=== PATIENT | male | born 1945 | race Caucasian/White ===

== ENCOUNTER 2017-03-07 23:56 | Inpatient (IN) | payer OTHER ==
[~2017-03-07] VITALS: Ht 162.6 cm; Wt 64.4 kg
--- NOTE | 2017-03-08 00:01 | ED SYNCOPE COMPLAINT ---
History of Present Illness General Chief Complaint: Syncope and Near-Syncope Stated Complaint: BIBA, SYNCOPE Source: patient, family Exam Limitations: poor historian Vital Signs & Intake/Output Vital Signs & Intake/Output Vital Signs Date Time Temp Pulse Resp B/P B/P Pulse O2 O2 Flow FiO2 Mean Ox Delivery Rate 03/08 0206 70 20 133/97 95 Room Air 03/08 0010 209/119 03/08 0006 200/90 03/08 0000 94 Room Air Room Air 03/08 0000 97.4 86 16 204/111 99 Room Air Allergies Coded Allergies: No Known Allergies (03/08/17) HPI: 72 year old male presents via EMS from home for chief complaint of right sided abdominal pain, nausea and spitting up. Per the daughter she was trying to bring him to the hospital and he passed out once while standing for approx 1 minute and then again after lying down in the stretcher. Pain initially went away but then returned again. Past History Travel History Traveled to [place] past 21 day No Medical History Any Pertinent Medical History? see below for history Cardiovascular: hypertension Cancer(s): prostate cancer (METS TO BONE) Physical Exam Physical Exam General Appearance: alert, awake, anxious, cachetic, mild distress, moderate distress, thin Head: atraumatic, normal appearance Eyes: Bilateral: PERRL, EOMI, pale conjunctivae. Ears, Nose, Throat: normal pharynx, normal ENT inspection, hearing grossly normal Neck: normal inspection, supple, full range of motion Respiratory: normal breath sounds, chest non-tender, no respiratory distress Cardiovascular: regular rate/rhythm Gastrointestinal: soft, tenderness (RLQ, RIGHT FLANK) Back: CVA tenderness (R) Extremities: normal inspection, normal capillary refill, normal range of motion, calf tenderness Psychiatric: awake, alert, oriented x 3 Cranial Nerves: normal hearing, normal speech, PERRL Motor/Sensory: no motor/sensory deficits Progress Differential Diagnosis: aortic dissection, pulmonary embolus, UTI, PYELO, NEPHROLITHIASIS, AAA Plan of Care: Orders Procedure Date/time Status Heart Healthy Diet 03/08 B Active Add-on Test (ER Only) 03/08 228 Active ED Holding Orders 03/08 227 Active Admit to inpatient 03/08 227 Active Vital Signs 03/08 227 Active Code Status 03/08 227 Active Telemetry/Proposal Editor 02/01 0009 Active URINALYSIS 03/08 8 Complete TROPONIN LEVEL 03/08 8 Complete COMPREHENSIVE METABOLIC PANEL 03/08 8 Complete CBC WITHOUT DIFFERENTIAL 03/08 8 Complete EKG 03/08 8 Active Current Medications Sig/Fareed Start time Last Medication Dose Stop Time Status Admin Heparin Sodium 5,000 UNIT ONCE ONE 03/08 229 UNVr (Porcine) 03/08 230 (Heparin Bolus) Heparin Sodium 25,000 UNIT Q24H 03/08 229 UNVr (Porcine) (Heparin) Sodium Chloride 500 ML Laboratory Tests 03/08/17 0025: Urine Color YEL, Urine Clarity HAZY H, Urine pH 7.5, Ur Specific [place] 1.020, Urine Protein NEG, Urine Ketones NEG, Urine Nitrite NEG, Urine Bilirubin NEG, Urine Urobilinogen 1.0, Ur Leukocyte Esterase NEG, Ur Microscopic SEDIMENT EXAMINED, Urine RBC 15-25 H, Urine WBC RARE, Ur Epithelial Cells RARE, Urine Mucus RARE, Urine Hemoglobin LARGE H, Urine Glucose NEG 03/08/17 0015: Anion Gap 14, Estimated GFR > 60, BUN/Creatinine Ratio 21.7, Glucose 117 H, Calcium 9.2, Total Bilirubin 0.9, AST 25, ALT 23, Alkaline Phosphatase 78, Troponin I 0.05, Total Protein 7.5, Albumin 4.1, Globulin 3.4, Albumin/Globulin Ratio 1.2, CBC w Diff NO MAN DIFF REQ, RBC 4.69 L, MCV 88.4, MCH 30.0, MCHC 34.0, RDW 14.5, MPV 8.8, Gran % 76.7 H, Lymphocytes % 15.2 L, Monocytes % 7.1, Eosinophils % 0.8, Basophils % 0.2, Absolute Granulocytes 7.0 H, Absolute Lymphocytes 1.4, Absolute Monocytes 0.6, Absolute Eosinophils 0.1, Absolute Basophils 0 Diagnostic Imaging: Viewed by Me: CT Scan. Discussed w/RAD: CT Scan. Radiology Impression: PATIENT: WASHINGTON HOLLOWAY PRESENT AGE: 72 PATIENT ACCOUNT NO: [id number] : 46 LOCATION: [facility] ORDERING PHYSICIAN: Sabrina Miller MD SERVICE DATE: 03/08/17 EXAM TYPE: CAT - CT ABD & PELVIS W IV CONTRAST EXAMINATION: CT ABDOMEN AND PELVIS WITH CONTRAST CLINICAL INFORMATION: Right lower quadrant and right flank pain. Vomiting. History of prostate cancer. COMPARISON: None TECHNIQUE: Multidetector volumetric imaging was performed of the abdomen and pelvis following IV administration of 95 mL of Optiray 320 intravenous contrast. Sagittal and coronal reformatted images were obtained on the technologist's workstation. DLP: 332 mGy-cm FINDINGS: LUNG BASES: The lung bases are clear. The heart is mildly prominent with coronary artery calcifications. LIVER, GALLBLADDER, AND BILIARY TREE: The liver is normal in size, shape, and attenuation. No focal hepatic lesion or biliary ductal dilatation is present. There is heterogeneity of the enhancement of the portal vein. The appearance is somewhat nonspecific, and while this could be secondary to mixing of enhanced and nonenhanced blood products, the appearance raises suspicion for nonocclusive thrombus. The gallbladder is unremarkable with no evidence of radiopaque gallstones, gallbladder wall thickening, or obvious pericholecystic inflammatory changes. PANCREAS: Unremarkable. SPLEEN: Unremarkable. ADRENAL GLANDS: Unremarkable. KIDNEYS AND URETERS: The kidneys are normal in size, shape, and attenuation. There is mild right hydroureteronephrosis. There is a proximal ureteral 0.2 cm calculus. There is a mid ureteral 0.4 cm calculus at the level of L4. The distal ureter is decompressed. There are multiple foci of high attenuation within the left kidney which could be associated with early excretion of contrast versus small calculi. Multiple right renal cysts. Exophytic left lower pole renal cysts. BLADDER: Unremarkable. GASTROINTESTINAL TRACT: The stomach is unremarkable. The small bowel is normal in caliber without obstruction. No colonic wall thickening or inflammatory change. There is fecalization of the distal ileum suggesting slow transit. ABDOMINAL WALL: No significant hernia is appreciated. LYMPH NODES: Normal. VASCULAR: There is an infrarenal abdominal aortic aneurysm which measures 5.1 cm AP. Noncalcified mural thrombus peripherally. Moderate atherosclerotic calcifications. PELVIC VISCERA: The prostate and seminal vesicles are unremarkable. OSSEOUS STRUCTURES: There are multiple sclerotic lesions throughout the osseous structures consistent with metastatic disease. IMPRESSION: 1. Mild right hydroureteronephrosis with a 0.4 cm obstructing calculus at the mid ureter. 2. Abnormal appearance of the main portal vein with mixed internal attenuation. While this could be secondary to mixing of contrast enhanced and nonenhanced blood, this is suspicious for portal venous thrombus. Doppler ultrasound evaluation could be performed to further evaluate. 3. Infrarenal abdominal aortic aneurysm measuring up to 5.1 cm AP. 4. Diffuse sclerotic lesions throughout the osseous structures consistent with metastatic disease. This critical result was discussed with Sabrina Miller MD by telephone at 03/08/2017 2:09 AM and it was ascertained that the content and urgency of the report was understood at the time of direct communication. DICTATED BY: Brooks Goodman MD DATE/TIME DICTATED:03/08/17200 EXERCISE PHYSIOLOGY PROFESSOR:LEONARD DATE/TIME TRANSCRIBED:03/08/17200 CONFIDENTIAL, DO NOT COPY WITHOUT APPROPRIATE AUTHORIZATION. <Electronically signed in Other Vendor System> SIGNED BY: Rex MOFFETT,Brooks 03/08/17215 Initial ED EKG: NSR, LAFB Departure Departure Time of Disposition: 227 Disposition: STILL A PATIENT Condition: Stable Clinical Impression Primary Impression: Renal colic on right side Referrals: Unknown Departure Forms: Customer Survey General Discharge Information Admission Note Spoke With: Maribel Flood MD Documentation of Exam: Documentation of any treatments & extenuating circumstances including Concerns Regarding Discharge (functional status, medication knowledge or non-compliance, living conditions, etc.) that warrant an admission rather than observation: [ TELE MONITOR, SERIAL EKG/TROPONIN, IV HEAPRIN, MONITOR PT, PTT, PULL RECORDS FROM [facility] TO EVALUATE IF IVC CLOT IS NEW/OLD, CONSIDER CT CHEST PE TOMORROW TO EVALUATE FOR PE PATIENT HAD 2 SYNCOPAL EPISODES]
[2017-03-08 00:35] LABS: ABSOLUTE BASOPHIL COUNT 0 /CUMM (0.0-0.2); ABSOLUTE EOSINOPHIL COUNT 0.1 /CUMM (0.0-0.7); ABSOLUTE LYMPH COUNT 1.4 /CUMM (1.2-3.4); ABSOLUTE MONOCYTE COUNT 0.6 /CUMM (0.10-0.60); BASOPHIL % 0.2 % (0.0-2.0); EOSINOPHIL % 0.8 % (0-5); GRANULOCYTE % 76.7 % (42.2-75.2); HEMATOCRIT 41.4 % (42-52); MEAN CORPUSCULAR VOLUME 88.4 FL (80.0-94.0); MEAN PLATELET VOLUME 8.8 FL (7.4-10.4); PLATELET COUNT 91 /CUMM (130-400); RBC DISTRIBUTION WIDTH 14.5 % (11.5-14.5); RED BLOOD CELL CT 4.69 /CUMM (4.70-6.10); WHITE BLOOD CELL COUNT 9.1 /CUMM (4.8-10.8)
--- NOTE | 2017-03-08 02:16 | CT SCAN REPORT ---
EXAMINATION: CT ABDOMEN AND PELVIS WITH CONTRAST CLINICAL INFORMATION: Right lower quadrant and right flank pain. Vomiting. History of prostate cancer. COMPARISON: None TECHNIQUE: Multidetector volumetric imaging was performed of the abdomen and pelvis following IV administration of 95 mL of Optiray 320 intravenous contrast. Sagittal and coronal reformatted images were obtained on the technologist's workstation. DLP: 332 mGy-cm FINDINGS: LUNG BASES: The lung bases are clear. The heart is mildly prominent with coronary artery calcifications. LIVER, GALLBLADDER, AND BILIARY TREE: The liver is normal in size, shape, and attenuation. No focal hepatic lesion or biliary ductal dilatation is present. There is heterogeneity of the enhancement of the portal vein. The appearance is somewhat nonspecific, and while this could be secondary to mixing of enhanced and nonenhanced blood products, the appearance raises suspicion for nonocclusive thrombus. The gallbladder is unremarkable with no evidence of radiopaque gallstones, gallbladder wall thickening, or obvious pericholecystic inflammatory changes. PANCREAS: Unremarkable. SPLEEN: Unremarkable. ADRENAL GLANDS: Unremarkable. KIDNEYS AND URETERS: The kidneys are normal in size, shape, and attenuation. There is mild right hydroureteronephrosis. There is a proximal ureteral 0.2 cm calculus. There is a mid ureteral 0.4 cm calculus at the level of L4. The distal ureter is decompressed. There are multiple foci of high attenuation within the left kidney which could be associated with early excretion of contrast versus small calculi. Multiple right renal cysts. Exophytic left lower pole renal cysts. BLADDER: Unremarkable. GASTROINTESTINAL TRACT: The stomach is unremarkable. The small bowel is normal in caliber without obstruction. No colonic wall thickening or inflammatory change. There is fecalization of the distal ileum suggesting slow transit. ABDOMINAL WALL: No significant hernia is appreciated. LYMPH NODES: Normal. VASCULAR: There is an infrarenal abdominal aortic aneurysm which measures 5.1 cm AP. Noncalcified mural thrombus peripherally. Moderate atherosclerotic calcifications. PELVIC VISCERA: The prostate and seminal vesicles are unremarkable. OSSEOUS STRUCTURES: There are multiple sclerotic lesions throughout the osseous structures consistent with metastatic disease. IMPRESSION: 1. Mild right hydroureteronephrosis with a 0.4 cm obstructing calculus at the mid ureter. 2. Abnormal appearance of the main portal vein with mixed internal attenuation. While this could be secondary to mixing of contrast enhanced and nonenhanced blood, this is suspicious for portal venous thrombus. Doppler ultrasound evaluation could be performed to further evaluate. 3. Infrarenal abdominal aortic aneurysm measuring up to 5.1 cm AP. 4. Diffuse sclerotic lesions throughout the osseous structures consistent with metastatic disease. This critical result was discussed with Sabrina Miller MD by telephone at 03/08/2017 2:09 AM and it was ascertained that the content and urgency of the report was understood at the time of direct communication.
--- NOTE | 2017-03-08 02:50 | History & Physical ---
Jimy Cannon MD 03/08/17 0250: General Information and HPI MD Statement: I have seen and personally examined WASHINGTON HOLLOWAY and documented this H& P. The patient is a 72 year old M who presented with a patient stated chief complaint of [syncope, abdominal pain]. Source of Information: patient, family Exam Limitations: not alert/orientated History of Present Illness: Patient is a 72-year-old male with a PMH significant for HTN, AAA, prostate cancer with metastasis to bone, questionable diagnosis of hepatitis who was brought in by EMS after multiple episodes of syncope and severe right lower quadrant pain. Patient began having pain at approximately 7 PM, had one episode of nonbloody emesis and pain resolves for approximately 1-2 hours. The pain began again, was persistent and severe right lower quadrant pain. On the patient's daughter attempted to help the patient get to the car to take him to the hospital he complained of dizziness, became diaphoretic and lost consciousness for approximately 1 minute. He did not exhibit any jerking motions, did not lose control of bowel or bladder, not bite his tongue. EMS was called and the patient proceeded to have 1-2 more episodes of loss of consciousness even while lying down. Patient endorses urinary frequency. Patient denies any chest pain, diarrhea, dysuria, hematuria. Allergies/Medications Allergies: Coded Allergies: No Known Allergies (03/08/17) Past History Travel History Traveled to [place] past 21 day No Medical History Neurological: NONE EENT: NONE Cardiovascular: aortic aneurysm, hypertension Respiratory: COPD Gastrointestinal: NONE Hepatic: questionable hx of hepatitis Renal: NONE Musculoskeletal: NONE Psychiatric: NONE Endocrine: NONE Blood Disorders: NONE Cancer(s): prostate cancer (METS TO BONE) Surgical History Surgical History: non-contributory Past Family/Social History Family History Relations & Conditions if any Relation not specified for: *No pertinent family history Psychosocial History Where do you live? Home Who Do You Live With? child Primary Language: R[place] Smoking Status: Current Everyday Smoker ETOH Use: denies use Illicit Drug Use: denies illicit drug use Functional Ability Ambulation: cane Review of Systems Review of Systems Constitutional: Denies: chills, fever, malaise. EENTM: Denies: blurred vision, double vision, visual changes. Cardiovascular: Reports: syncope. Denies: chest pain, palpitations. Respiratory: Reports: cough. Denies: short of breath. GI: Reports: abdominal pain, vomiting. Denies: diarrhea. Genitourinary: Reports: frequency. Denies: dysuria, hematuria. Exam & Diagnostic Data Last 24 Hrs of Vital Signs/I&O Vital Signs Date Time Temp Pulse Resp B/P B/P Pulse O2 O2 Flow FiO2 Mean Ox Delivery Rate 03/08 0638 98.4 70 20 176/82 98 Room Air 03/08 0206 70 20 133/97 95 Room Air 03/08 0010 209/119 03/08 0006 200/90 03/08 0000 94 Room Air Room Air 03/08 0000 97.4 86 16 204/111 99 Room Air Intake & Output 03/08 0800 03/08 0000 03/07 1600 Intake Total 123.2 Output Total 1000 Balance -876.8 Intake, IV 123.2 Intake, Oral 0 Output, Urine 1000 Patient 142 lb Weight Physical Exam General Appearance Cooperative, Mild Distress, patient is lethargic, oriented to person and place but not time, cooperative with most of exam but would doze off during interview Skin Temp/Moisture Exam: Warm/Dry HEENT Atraumatic, PERRLA, EOMI, Mucous Membr. moist/pink Neck Supple Cardiovascular Regular Rate, Normal S1, Normal S2 Lungs Clear to Auscultation, Normal Air Movement Abdomen Normal Bowel Sounds, guarding, nonrigid, TTP in RLQ, no CVA tenderness Neurological Normal Speech, Sensation Intact Last 24 Hrs of Labs/Dany: Laboratory Tests 03/08/17 0635: Sodium Pending, Potassium Pending, Chloride Pending, Carbon Dioxide Pending, Anion Gap Pending, BUN Pending, Creatinine Pending, BUN/Creatinine Ratio Pending , Troponin I Pending, CBC w Diff Pending, MCH Pending, MCHC Pending, RDW Pending , Plt Count Pending, MPV Pending 03/08/17 0025: Urine Color YEL, Urine Clarity HAZY H, Urine pH 7.5, Ur Specific Angela 1.020, Urine Protein NEG, Urine Ketones NEG, Urine Nitrite NEG, Urine Bilirubin NEG, Urine Urobilinogen 1.0, Ur Leukocyte Esterase NEG, Ur Microscopic SEDIMENT EXAMINED, Urine RBC 15-25 H, Urine WBC RARE, Ur Epithelial Cells RARE, Urine Mucus RARE, Urine Hemoglobin LARGE H, Urine Glucose NEG 03/08/17 0015: Anion Gap 14, Estimated GFR > 60, BUN/Creatinine Ratio 21.7, Glucose 117 H, Calcium 9.2, Total Bilirubin 0.9, AST 25, ALT 23, Alkaline Phosphatase 78, Troponin I 0.05, Total Protein 7.5, Albumin 4.1, Globulin 3.4, Albumin/Globulin Ratio 1.2, PT 12.4, INR 1.18 H, APTT 31, CBC w Diff NO MAN DIFF REQ, RBC 4.69 L, MCV 88.4, MCH 30.0, MCHC 34.0, RDW 14.5, MPV 8.8, Gran % 76.7 H, Lymphocytes % 15.2 L, Monocytes % 7.1, Eosinophils % 0.8, Basophils % 0.2, Absolute Granulocytes 7.0 H, Absolute Lymphocytes 1.4, Absolute Monocytes 0.6, Absolute Eosinophils 0.1, Absolute Basophils 0 Diagnostic Data Other Results abdominal CT 1. Mild right hydroureteronephrosis with a 0.4 cm obstructing calculus at the mid ureter. 2. Abnormal appearance of the main portal vein with mixed internal attenuation. While this could be secondary to mixing of contrast enhanced and nonenhanced blood, this is suspicious for portal venous thrombus. Doppler ultrasound evaluation could be performed to further evaluate. 3. Infrarenal abdominal aortic aneurysm measuring up to 5.1 cm AP. 4. Diffuse sclerotic lesions throughout the osseous structures consistent with metastatic disease. Assessment/Plan Assessment: Patient is a 72-year-old male with a PMH significant for HTN, AAA, prostate cancer with metastasis to bone, questionable diagnosis of hepatitis who was brought in by EMS after multiple episodes of syncope and severe right lower quadrant pain. CT abdomen and pelvis with contrast showed obstrucing R renal calculus, possible portal thrombus, and AAA (5.1 cm). Per daughter, pt is not a surgical candidate due to advanced cancer. Problem list #syncope #Portal venous thrombus #AAA #obstructing renal calculus #hypertensive urgency, resovled plan -admit to tele -Continue telemetry monitoring -Serial troponins and EKGs -Echocardiogram -Orthostatic pressure - consider CTA chest to r/o PE, not done due to IV contrast received for CT abd/ pelvis -IV heparin for portal venous thrombus -Patient follows at the [facility], obtain records of previous CTs for AAA size and evidence of previous portal venous thrombus, consider GI, vascular surgery consult after Records obtained. -Urology consult placed -Continue with adequate pain management - Follow up lactic acid - will hold antihypertensives for now given rapid drop in BP in the ED -confirm code status with patient when he is more alert, he is full code based on initial interview but per daughter he has been DNR/DNI in the past #DVT prophylaxis with IV heparin #Code Status Full code, please confirm with patient when he is more alert As Ranked By This Provider Problem List: 1. AAA (abdominal aortic aneurysm) 2. Portal vein thrombosis 3. Hydronephrosis with renal and ureteral calculus obstruction 4. Syncope Core Measures/Misc (10/22) Acute Coronary Syndrome ACS Diagnosis: No Congestive Heart Failure Congestive Heart Failure Diagnosis No Cerebrovascular Accident CVA/TIA Diagnosis: No VTE (View Protocol) VTE Risk Factors Cancer/chemo/othr therapy No Mechanical VTE Prophylaxis d/t N/A MechProphylax Ordered No VTE Pharm Prophylaxis d/t NA PharmProphylax ordered Sepsis (View protocol) Sepsis Present: No Radha MOFFETT,Mae 03/08/17 0442: General Information and HPI Allergies/Medications Home Med list Calcium Carbonate (Oysco-500) 500 MG CALCIUM (1,250 MG) TABLET 1 TAB PO DAILY VITAMIN (Reported) Cyanocobalamin (Vitamin B-12) (B-12) 1,000 MCG TABLET 1 TAB PO DAILY VITAMIN (Reported) Enzalutamide (Xtandi) 40 MG CAPSULE 4 TAB PO DAILY PROSTATE CANCER (Reported) Labetalol HCl 200 MG TABLET 1 TAB PO BID HTN (Reported) Morphine Sulfate 30 MG TABLET 1 TAB PO Q4 PAIN (Reported) Simvastatin (Simvastatin*) 80 MG TABLET 1 TAB PO DAILY CHOLESTEROL (Reported) Spironolactone (Aldactone) 25 MG TABLET 1 TAB PO DAILY HTN (Reported) Tamsulosin HCl (Flomax) 0.4 MG CAP.ER.24H 1 CAP PO DAILY PROSTATE (Reported) Resident Review Statement Resident Statement: examined this patient, discussed with product management intern Other Findings: H Mr Holloway is a 72-year-old male with a PMH significant for HTN, AAA, prostate cancer with metastasis to bone, questionable diagnosis of hepatitis was brought into the emergency department complaining of right lower pain, emesis and possible syncope. It must be mentioned that the patient was rather somnolent during the course of our interaction and most of the information below was obtained by the primary team from the patient's daughter. Patient states that he was in his usual state of health until 7 PM on 03/07/2017. He subsequently developed pain in his right lower quadrant and had one episode of nonbloody emesis. He subsequently reported relief after this. Approximately 2 hours after a breif respite it then started again. Patient then requested is daughter to bring him to the emergency department however as he was ambulating towards the vehicle he became dizzy, diaphoretic and lost consciousness for approximately 1 minute. During this episode no jerking movements were noted. The patient does not recall what happened during this episode. EMS had to be called and the patient was subsequently brought to the ED. R: On review of systems the patient denies any chest pain or headaches. Denies any fever, chills, nausea, vomiting. Denies any hematuria, diarrhea. Endorses urinary frequency. E: General Appearance: well developed/nourished, no apparent distress, alert and oriented. Somnolent. Head: atraumatic, normal appearance Eyes: PERRLA Ears, Nose, Throat: hearing grossly normal Neck: supple, full range of motion Respiratory:Chest non-tender, no respiratory distress. Cardiovascular: Regular Rate and rhythm, no murmurs gallops or rubs. Gastrointestinal:Hyperactive bowel sounds, some guarding noted. Cesar -. No CVA tenderness. Back: normal inspection, normal range of motion Extremities: normal inspection, normal range of motion. Neurologic/Psych: no motor/sensory deficits, awake, alert, oriented x 3 Skin: warm/dry L: WBC 9.1. H&H 14.1/41.4. Platelets 91 Sodium 142, potassium 3.8, BUN 13, creatinine 0.6. Chloride: 104. Hco3: 25. I: EXAM TYPE: CAT - CT ABD & PELVIS W IV CONTRAST IMPRESSION: 1. Mild right hydroureteronephrosis with a 0.4 cm obstructing calculus at the mid ureter. 2. Abnormal appearance of the main portal vein with mixed internal attenuation. While this could be secondary to mixing of contrast enhanced and nonenhanced blood, this is suspicious for portal venous thrombus. Doppler ultrasound evaluation could be performed to further evaluate. 3. Infrarenal abdominal aortic aneurysm measuring up to 5.1 cm AP. 4. Diffuse sclerotic lesions throughout the osseous structures consistent with metastatic disease. A/P Mr Holloway is a 72-year-old male with a PMH significant for HTN, AAA, prostate cancer with metastasis to bone, questionable diagnosis of hepatitis was brought into the emergency department complaining of right lower pain, emesis and possible syncope. The source of his pain is likley caused by: an obstructing calculus at the mid ureter. His episode of syncope and transient elevated pressure may have been due to the pain, it would be prudent to monitor him closely on the NCT service for the next 24 - 48 hours. Problem List: # Possible Portal venous thrombus # Syncope # AAA # Mild right hydroureteronephrosis # Metastatic disease associated with primary prostate CA. # Hypertensive Urgency on admission Telemetry monitoring. Neurochecks. Patient was started on IV Heparin in the ED. We will continue the patient on IV Heparin. Hold Antihypertensives Echocardiogram to assess right heart strain. ECG and troponins at 6.00 and 12.00 Urology consultation for mild right hydroureteronephrosis, may require cystoscopy with possible stent placement. May assess need for CTA to rule out a PE, this was not ordered as the patient had already received a substantial amount of contrast. Deep ultrasound with Doppler for abdomen. Obtain previous records from [facility]. Once records obtained May consider additional consultations. It appears the patient was aware that he had an aneurysm. Will compare imaging studies from previous hospitalizations. Head CT if mentation changes are noted. Monitor Vitals closely, may resume anti hypertensives if pressure >140/80. CBC and BEP in AM Diet nothing by mouth for now. DVT PPX: Heparin Sub Q Code: FC for now to be confirmed when patient is more alert and oriented. Maribel Flood 03/08/17 0714: Attending MD Review Statement Attending Statement Attending MD Statement: examined this patient, discuss w/resident/PA/CRITICAL CARE TECHNICIAN, agreed w/resident/PA/CRITICAL CARE TECHNICIAN, reviewed EMR data (avail), reviewed images, amended to note Attending Assessment/Plan: CC: Syncope PMH: HTN, metastatic prostate cancer with bone metastases, unclear history of hepatitis currently under treatment, history of CVA, history of AAA History is obtain from patient's daughter. Patient was complaining of abdominal pain and had retching in ER, was given Phenergan and patient was still being very deep thereafter and was not providing any details. According to patient's daughter this evening patient complained of severe right lower quadrant abdominal pain, followed by 8 patient had one episode of vomiting and then he was better for an hour or so, he again noticed to have a severe left lower quadrant pain which was progressively worsening, patient's daughter was about to get him to hospital when she make him stand up he almost passed out for very short duration, woke up by himself. They did not notice any seizure-like activity, stiffness of the body, bladder bowel incontinence. EMS was called and patient was made to lie down in bed when he had another such episode of unresponsiveness. Before passing out patient was complaining of dizziness and sweating and was having heavy breathing. Patient did not have symptoms are episodes in the past. Patient's most of the care is done at [facility], currently on chemotherapy for metastatic prostate cancer. Vitals: Afebrile, pulse in 70s, RR 20, blood pressure initially 204/111, improved to 133/97 without treatment, saturating 95% on room air On exam: Arousable, cooperative, no acute distress, neck supple, JVD normal, no lymphadenopathy, mucosa dry, no focal neurological deficit, no dependent edema, no obvious skin rashes or inflammation CVS: S1-S2, RRR. RS: Clear to auscultate bilaterally. Abdomen: Soft, NT, ND, bowel sounds present. Labs: CBC, BMP, LFT unremarkable. Troponin 0.05, INR 1.18, UA unremarkable except large hemoglobin and RBCs ECG: No acute changes CT abdomen pelvis with IV contrast: 1. Mild right hydroureteronephrosis with a 0.4 cm obstructing calculus at the mid ureter. 2. Abnormal appearance of the main portal vein with mixed internal attenuation. While this could be secondary to mixing of contrast enhanced and nonenhanced blood, this is suspicious for portal venous thrombus. Doppler ultrasound evaluation could be performed to further evaluate. 3. Infrarenal abdominal aortic aneurysm measuring up to 5.1 cm AP. 4. Diffuse sclerotic lesions throughout the osseous structures consistent with metastatic disease. Assessment and plan 72-year-old male with above-mentioned past medical history presented in ER for severe right-sided lower abdominal pain associated with multiple vomiting. Patient also had a syncopal episode at home likely appears to be secondary to severe pain. On investigations in ER patient is found to have obstructing mid ureteric calculus on the right side with hydronephrosis, no evidence of pyelonephritis or perinephric stranding, no CVA tenderness. On CT scan, there is also suspicion for portal venous thrombus. Given his metastatic cancer history, he is at high risk, he was started on heparin. We will continue heparin, obtain records from [facility], evaluated for syncope, urology consult for obstructing calculus. + right mid ureter obstructing calculus with hydronephrosis + Syncope + Possible portal thrombosis + History of HTN, metastatic prostate cancer with bone metastases, unclear history of hepatitis currently under treatment, history of CVA, history of AAA - Admit to telemetry - Continuous telemetry monitoring - Serial troponin and EKG - Orthostatic vitals - 2-D echocardiogram in a.m. - Cardiology consult - Trend lactate - Hold antihypertensives as blood pressure is significantly dropping - Urology consult in a.m. - Continue IV heparin - Obtain records from [facility] - Deep ultrasound with Doppler for abdomen - DVT prophylaxis - Adequate pain control
[2017-03-08 02:57] LABS: PT 12.4 SEC (9.4-12.5); PTT 31 SEC (25-37)
[2017-03-08] MEDS ORDERED: XTANDI40 M1 PO (03:12)
[2017-03-08] MEDS ORDERED: MORPHINE SULFAT30 M7 PO (03:13)
[2017-03-08] MEDS ORDERED: LABETALOL HCL200 M1 PO (03:14)
[2017-03-08] MEDS ORDERED: SIMVASTATIN80 M1 PO (03:14)
[2017-03-08] MEDS ORDERED: ALDACTONE25 MG PO (03:15)
[2017-03-08] MEDS ORDERED: OYSCO-500500 MG PO (03:15)
[2017-03-08] MEDS ORDERED: B-121000 MC3 PO (03:16)
[2017-03-08] MEDS ORDERED: FLOMAX0.4 M1 PO (03:16)
[2017-03-08 06:38] VITALS: BP 176/82
--- NOTE | 2017-03-08 07:16 | Admission Certification ---
Admission Certification Certification Statement - As attending physician, I certify that at the time of - admission, based on clinical presentation, severity of - symptoms, need for further diagnostic testing and - therapeutic interventions, and risk of adverse outcomes - without in-hospital treatment, in my clinical assessment, - this patient requires an acute hospital stay for a minimum - of two nights or longer. I have also considered psychsocial - factors such as support system, advanced age, financial - issues, cognitive issues, and failed out-patient treatments, - past re-admission history, safety of patient, and lack of - compliance as applicable. Specific rationale supporting this admission is: right hydronephrosis, obstructing ureteric calculus, syncope, suspected portal thrombosis
[2017-03-08 08:59] LABS: ABSOLUTE BASOPHIL COUNT 0 /CUMM (0.0-0.2); ABSOLUTE EOSINOPHIL COUNT 0 /CUMM (0.0-0.7); ABSOLUTE GRANULOCYTE CT 5.9 /CUMM (1.4-6.5); ABSOLUTE MONOCYTE COUNT 0.4 /CUMM (0.10-0.60); BASOPHIL % 0.5 % (0.0-2.0); EOSINOPHIL % 0.2 % (0-5); MEAN CORPUSCULAR HGB 30.2 PG (27.0-31.0); MEAN CORPUSCULAR HGB CONC 33.6 G/DL (33.0-37.0); MEAN CORPUSCULAR VOLUME 89.8 FL (80.0-94.0); MEAN PLATELET VOLUME 9.6 FL (7.4-10.4); PLATELET COUNT 84 /CUMM (130-400); RBC DISTRIBUTION WIDTH 14.8 % (11.5-14.5); RED BLOOD CELL CT 4.34 /CUMM (4.70-6.10); WHITE BLOOD CELL COUNT 7.4 /CUMM (4.8-10.8)
[2017-03-08 09:16] VITALS: BP 188/82
--- NOTE | 2017-03-08 09:53 | Cons- Urology ---
General Information and HPI Consulting Request Date of Consult: 03/08/17 Requested By: Maribel Flood MD Reason for Consult: right renal colic with obstructed kidney due to stones. Source of Information: patient, family, old records Exam Limitations: poor historian History of Present Illness: Patient is a 72-year-old male with a PMH significant for HTN, AAA, prostate cancer with metastasis to bone, questionable diagnosis of hepatitis who was brought in by EMS after multiple episodes of syncope and severe right lower quadrant pain. Patient began having pain at approximately 7 PM, had one episode of nonbloody emesis and pain resolves for approximately 1-2 hours. The pain began again, was persistent and severe right lower quadrant pain. On the patient's daughter attempted to help the patient get to the car to take him to the hospital he complained of dizziness, became diaphoretic and lost consciousness for approximately 1 minute. He did not exhibit any jerking motions, did not lose control of bowel or bladder, not bite his tongue. EMS was called and the patient proceeded to have 1-2 more episodes of loss of consciousness even while lying down. Patient endorses urinary frequency. Patient denies any chest pain, diarrhea, dysuria, hematuria. The patient states that he is had pain on the right hand side for about a month. Eyes prior history of kidney stones. The patient was made aware that he has kidney stones on the right side with obstructed kidney, seen on CAT scan on this admission. I have discussed the patient's current condition, CAT scan finding of stones, and plan for stone extraction with stent with both his son and his daughter who both consented to proceed with the plan for today. Allergies/Medications Allergies: Coded Allergies: No Known Allergies (03/08/17) Home Med List: Calcium Carbonate (Oysco-500) 500 MG CALCIUM (1,250 MG) TABLET 1 TAB PO DAILY VITAMIN (Reported) Cyanocobalamin (Vitamin B-12) (B-12) 1,000 MCG TABLET 1 TAB PO DAILY VITAMIN (Reported) Enzalutamide (Xtandi) 40 MG CAPSULE 4 TAB PO DAILY PROSTATE CANCER (Reported) Labetalol HCl 200 MG TABLET 1 TAB PO BID HTN (Reported) Morphine Sulfate 30 MG TABLET 1 TAB PO Q4 PAIN (Reported) Simvastatin (Simvastatin*) 80 MG TABLET 1 TAB PO DAILY CHOLESTEROL (Reported) Spironolactone (Aldactone) 25 MG TABLET 1 TAB PO DAILY HTN (Reported) Tamsulosin HCl (Flomax) 0.4 MG CAP.ER.24H 1 CAP PO DAILY PROSTATE (Reported) Current Medications: Current Medications Sig/Fareed Start time Last Medication Dose Route Stop Time Status Admin Acetaminophen 1,000 MG Q6P PRN 03/08 0815 AC 03/08 N/A 1 UNIT IV 0845 Heparin Sodium 0 .STK-MED ONE 03/08 0238 DC (Porcine) .ROUTE Heparin Sodium 5,000 UNIT ONCE ONE 03/08 0230 DC 03/08 (Porcine) IV 03/08 0231 0249 Heparin Sodium 25,000 UNIT Q24H 03/08 0230 AC 03/08 (Porcine) IV 0249 Sodium Chloride 500 ML Ondansetron HCl 0 .STK-MED ONE 03/08 0016 DC .ROUTE Ondansetron HCl 4 MG ONCE ONE 03/08 0015 DC 03/08 IV 03/08 0016 0018 Promethazine HCl 0 .STK-MED ONE 03/08 0116 DC .ROUTE Sodium Chloride 1,000 ML Q10H 03/08 0445 AC 03/08 IV 0512 Past History Medical History Neurological: NONE EENT: NONE Cardiovascular: aortic aneurysm, hypertension Respiratory: COPD Gastrointestinal: NONE Hepatic: questionable hx of hepatitis Renal: NONE Musculoskeletal: NONE Psychiatric: NONE Endocrine: NONE Blood Disorders: NONE Cancer(s): prostate cancer (METS TO BONE) Surgical History Pertinent Surgical History: non-contributory Family History Relations & Conditions If Any: Relation not specified for: *No pertinent family history Psychosocial History Where Do You Live? Home Who Do You Live With? child Primary Language: Thai Smoking Status: Current Everyday Smoker ETOH Use: denies use Illicit Drug Use: denies illicit drug use Functional Ability Ambulation: cane Employment History Retired? yes Review of Systems Review of Systems Constitutional: Reports: malaise, weakness. EENTM: Denies: no symptoms. Cardiovascular: Denies: no symptoms. Respiratory: Denies: no symptoms. GI: Reports: abdominal pain, bloating. Genitourinary: Reports: see HPI, hematuria. Musculoskeletal: Reports: muscle stiffness. Skin: Denies: no symptoms. Exam & Diagnostic Data Vital Signs and I&O Vital Signs Date Time Temp Pulse Resp B/P B/P Pulse O2 O2 Flow FiO2 Mean Ox Delivery Rate 03/08 0916 188/82 03/08 0638 98.4 70 20 176/82 98 Room Air 03/08 0206 70 20 133/97 95 Room Air 03/08 0010 209/119 03/08 0006 200/90 03/08 0000 94 Room Air Room Air 03/08 0000 97.4 86 16 204/111 99 Room Air Intake & Output 03/08 1600 03/08 0800 03/08 0000 03/07 1600 03/07 0800 03/07 0000 Intake Total 323.2 Output Total 1200 Balance -876.8 Intake, IV 323.2 Intake, Oral 0 Output, Urine 1200 Patient 142 lb Weight Physical Exam General Appearance: well developed/nourished, moderate distress Head: atraumatic Eyes: Bilateral: normal appearance. Respiratory: normal breath sounds Cardiovascular: regular rate/rhythm Gastrointestinal: normal bowel sounds, tenderness Back: CVA tenderness (R) Extremities: normal inspection Reproductive: Normal male genitalia Last 24 Hours of Labs: Laboratory Tests 03/08 03/08 0835 0635 Chemistry Sodium (137 - 145 mmol/L) 144 Potassium (3.5 - 5.1 mmol/L) 4.0 Chloride (98 - 107 mmol/L) 104 Carbon Dioxide (22 - 30 mmol/L) 26 Anion Gap (5 - 16) 13 BUN (9 - 20 mg/dL) 11 Creatinine (0.7 - 1.2 mg/dL) 0.6 L Estimated GFR (>60 ml/min) > 60 BUN/Creatinine Ratio (7 - 25 %) 18.3 Troponin I (<0.11 ng/ml) 0.06 Coagulation APTT Pending Hematology CBC w Diff NO MAN DIFF REQ WBC (4.8 - 10.8 /CUMM) 7.4 RBC (4.70 - 6.10 /CUMM) 4.34 L Hgb (14.0 - 18.0 G/DL) 13.1 L Hct (42 - 52 %) 39.0 L MCV (80.0 - 94.0 FL) 89.8 MCH (27.0 - 31.0 PG) 30.2 MCHC (33.0 - 37.0 G/DL) 33.6 RDW (11.5 - 14.5 %) 14.8 H Plt Count (130 - 400 /CUMM) 84 L MPV (7.4 - 10.4 FL) 9.6 Gran % (42.2 - 75.2 %) 80.0 H Lymphocytes % (20.5 - 51.1 %) 13.9 L Monocytes % (1.7 - 9.3 %) 5.4 Eosinophils % (0 - 5 %) 0.2 Basophils % (0.0 - 2.0 %) 0.5 Absolute Granulocytes (1.4 - 6.5 /CUMM) 5.9 Absolute Lymphocytes (1.2 - 3.4 /CUMM) 1.0 L Absolute Monocytes (0.10 - 0.60 /CUMM) 0.4 Absolute Eosinophils (0.0 - 0.7 /CUMM) 0 Absolute Basophils (0.0 - 0.2 /CUMM) 0 03/08 03/08 0025 0015 Chemistry Sodium (137 - 145 mmol/L) 142 Potassium (3.5 - 5.1 mmol/L) 3.8 Chloride (98 - 107 mmol/L) 104 Carbon Dioxide (22 - 30 mmol/L) 25 Anion Gap (5 - 16) 14 BUN (9 - 20 mg/dL) 13 Creatinine (0.7 - 1.2 mg/dL) 0.6 L Estimated GFR (>60 ml/min) > 60 BUN/Creatinine Ratio (7 - 25 %) 21.7 Glucose (65 - 99 mg/dL) 117 H Lactic Acid (0.7 - 2.1 mmol/L) 1.5 Calcium (8.4 - 10.2 mg/dL) 9.2 Total Bilirubin (0.2 - 1.3 mg/dL) 0.9 AST (17 - 59 U/L) 25 ALT (21 - 72 U/L) 23 Alkaline Phosphatase (< 127 U/L) 78 Troponin I (<0.11 ng/ml) 0.05 Total Protein (6.3 - 8.2 g/dL) 7.5 Albumin (3.5 - 5.0 g/dL) 4.1 Globulin (1.9 - 4.2 gm/dL) 3.4 Albumin/Globulin Ratio (1.1 - 2.2 %) 1.2 Coagulation PT (9.4 - 12.5 SEC) 12.4 INR (0.90 - 1.17) 1.18 H APTT (25 - 37 SEC) 31 Hematology CBC w Diff NO MAN DIFF REQ WBC (4.8 - 10.8 /CUMM) 9.1 RBC (4.70 - 6.10 /CUMM) 4.69 L Hgb (14.0 - 18.0 G/DL) 14.1 Hct (42 - 52 %) 41.4 L MCV (80.0 - 94.0 FL) 88.4 MCH (27.0 - 31.0 PG) 30.0 MCHC (33.0 - 37.0 G/DL) 34.0 RDW (11.5 - 14.5 %) 14.5 Plt Count (130 - 400 /CUMM) 91 L MPV (7.4 - 10.4 FL) 8.8 Gran % (42.2 - 75.2 %) 76.7 H Lymphocytes % (20.5 - 51.1 %) 15.2 L Monocytes % (1.7 - 9.3 %) 7.1 Eosinophils % (0 - 5 %) 0.8 Basophils % (0.0 - 2.0 %) 0.2 Absolute Granulocytes (1.4 - 6.5 /CUMM) 7.0 H Absolute Lymphocytes (1.2 - 3.4 /CUMM) 1.4 Absolute Monocytes (0.10 - 0.60 /CUMM) 0.6 Absolute Eosinophils (0.0 - 0.7 /CUMM) 0.1 Absolute Basophils (0.0 - 0.2 /CUMM) 0 Urines Urine Color (YEL,AMB,STR) YEL Urine Clarity (CLEAR) HAZY H Urine pH (5.0 - 8.0) 7.5 Ur Specific [place] (1.001 - 1.035) 1.020 Urine Protein (NEG,<30 MG/DL) NEG Urine Ketones (NEG) NEG Urine Nitrite (NEG) NEG Urine Bilirubin (NEG) NEG Urine Urobilinogen (0.1 - 1.0 EU/dl) 1.0 Ur Leukocyte Esterase (NEG) NEG Ur Microscopic SEDIMENT EXAMINED Urine RBC (0 - 5 /HPF) 15-25 H Urine WBC (0 - 2 /HPF) RARE Ur Epithelial Cells (NONE,FEW) RARE Urine Mucus (FEW,NONE) RARE Urine Hemoglobin (NEG) LARGE H Urine Glucose (N MG/DL) NEG Imaging Results: PATIENT: WASHINGTON HOLLOWAY PRESENT AGE: 72 PATIENT ACCOUNT NO: [id number] : 46 LOCATION: [facility] ORDERING PHYSICIAN: Sabrina Miller MD SERVICE DATE: 03/08/17 EXAM TYPE: CAT - CT ABD & PELVIS W IV CONTRAST EXAMINATION: CT ABDOMEN AND PELVIS WITH CONTRAST CLINICAL INFORMATION: Right lower quadrant and right flank pain. Vomiting. History of prostate cancer. COMPARISON: None TECHNIQUE: Multidetector volumetric imaging was performed of the abdomen and pelvis following IV administration of 95 mL of Optiray 320 intravenous contrast. Sagittal and coronal reformatted images were obtained on the technologist's workstation. DLP: 332 mGy-cm FINDINGS: LUNG BASES: The lung bases are clear. The heart is mildly prominent with coronary artery calcifications. LIVER, GALLBLADDER, AND BILIARY TREE: The liver is normal in size, shape, and attenuation. No focal hepatic lesion or biliary ductal dilatation is present. There is heterogeneity of the enhancement of the portal vein. The appearance is somewhat nonspecific, and while this could be secondary to mixing of enhanced and nonenhanced blood products, the appearance raises suspicion for nonocclusive thrombus. The gallbladder is unremarkable with no evidence of radiopaque gallstones, gallbladder wall thickening, or obvious pericholecystic inflammatory changes. PANCREAS: Unremarkable. SPLEEN: Unremarkable. ADRENAL GLANDS: Unremarkable. KIDNEYS AND URETERS: The kidneys are normal in size, shape, and attenuation. There is mild right hydroureteronephrosis. There is a proximal ureteral 0.2 cm calculus. There is a mid ureteral 0.4 cm calculus at the level of L4. The distal ureter is decompressed. There are multiple foci of high attenuation within the left kidney which could be associated with early excretion of contrast versus small calculi. Multiple right renal cysts. Exophytic left lower pole renal cysts. BLADDER: Unremarkable. GASTROINTESTINAL TRACT: The stomach is unremarkable. The small bowel is normal in caliber without obstruction. No colonic wall thickening or inflammatory change. There is fecalization of the distal ileum suggesting slow transit. ABDOMINAL WALL: No significant hernia is appreciated. LYMPH NODES: Normal. VASCULAR: There is an infrarenal abdominal aortic aneurysm which measures 5.1 cm AP. Noncalcified mural thrombus peripherally. Moderate atherosclerotic calcifications. PELVIC VISCERA: The prostate and seminal vesicles are unremarkable. OSSEOUS STRUCTURES: There are multiple sclerotic lesions throughout the osseous structures consistent with metastatic disease. IMPRESSION: 1. Mild right hydroureteronephrosis with a 0.4 cm obstructing calculus at the mid ureter. 2. Abnormal appearance of the main portal vein with mixed internal attenuation. While this could be secondary to mixing of contrast enhanced and nonenhanced blood, this is suspicious for portal venous thrombus. Doppler ultrasound evaluation could be performed to further evaluate. 3. Infrarenal abdominal aortic aneurysm measuring up to 5.1 cm AP. 4. Diffuse sclerotic lesions throughout the osseous structures consistent with metastatic disease. Assessment/Plan Assessment/Plan pt with severe right renal colic with obstructing ureter stones/plan is for cystoscopy, right ureteroscopy with retrograde pyelogram, possible laser, possible stent placement. This was discussed with the patient and both of his children; with both son and daughter consenting to proceed as the patient currently has received narcotics for his pain and is not consentable. Copies To: Carlos Eagle MD Consult Acknowledgment - Thank you for your consult request. Attending Review Statement Attending Statement Attending MD Statement: examined this patient, discuss w/resident/PA/TRACK MAINTAINER Attending Assessment/Plan: right obstructed kidney for stent/ureteroscopy/laser now.
[2017-03-08 10:15] LABS: PTT 74 SEC (25-37)
--- NOTE | 2017-03-08 11:04 | Operative Report ---
Operative/Inv Procedure Report Surgery Date: 03/08/17 Name of Procedure: Cystoscopy. Right ureteroscopy with laser lithotripsy of stone. Right retrograde pyelogram. Right stent placement. Fluoroscopy. Pre-Operative Diagnosis: Right obstructed kidney Post-Operative Diagnosis: 2 right ureter stones embedded in mid ureter with hydronephrosis. Estimated Blood Loss: scant Surgeon/Hydro Mechanic: MD Fco, [facility] Anesthesia: moderate sedation Drains: 16 Slovak Qiu to be removed on 03-25 for voiding trial. Microbiology: 2 right ureter stones. Complications: None Operative/Procedure Note Note: The patient was taken to the operating room and placed on the OR table in supine position. Timeout was performed, with the patient awake, in order to confirm correct patient, procedure, laterality, anesthesia, and other pertinent information. After adequate anesthesia and antibiotics, the patient was then placed in lithotomy stirrups, draped and prepped in the usual surgical fashion. A 22 Slovak cystoscope sheath with 30 angle lens was inserted into the bladder without difficulty. Upon entering the bladder, the bladder was noted to be free of stone. Both ureteral orifices were in their orthotopic position, with clear efflux bilaterally. The right ureter orifice was intubated with an 8fr tiger-tail catheter, and a retrograde pyelogram with fluoroscopy was performed revealing two mid-ureter stones with proximal hydronephrosis. The tiger-tail catheter was removed, followed by insertion of a 0.035 Glidewire, which was advanced into the right renal pelvis without difficulty. Correct placement of the wire was confirmed on fluoroscopy. The cystoscope was removed, leaving the Glidewire in place. The flexible digital ureteroscope, was railroaded over the gluidewire, and under fluoroscopic visualization, was advanced into the right ureter at the level of the obstructing stones. The Glidewire was removed, and the 275um fiber was insterted into the ureteroscope. With the laser fiber in direct contact with the embedded 5 mm stone at the mid-ureter, the laser lithotripsy was performed in order to pulverize the stone into multiple tiny fragments. Laser lithotripsy was performed at a second 4 mm stone just proximal to the previous one. All of the stones were also removed at this time the stones were sent to pathology for analysis. Having completely removed the ureter stone, the flexible uretersocope was advanced into the right renal pelvis, and pyeloscopy/calyxoscopy was performed. Severe hydronephrotic changes were noted, but not tumor, nor additional stones. The 0.035 Glidewire was then reinserted through the ureteroscope in order to place it in the right renal pelvis. The ureteroscope was then withdrawn slowly, leaving the Glidewire in place. The Glidewire was backloaded through the 22 Slovak cystoscope sheath with a 30 angle lens, which was then reinserted into the bladder. Under direct visualization,a 6 x 22 Bard onlay stent was railroaded over the Glidewire, and advanced into the right renal pelvis without difficulty. The Glidewire was removed, and the stent remained in proper place;confirmed by fluoroscopy, and cystoscopy. A 16 Slovak Qiu was placed into the bladder draining clear fluid. All sponge needle and instrument count were correct at the end of the case. The patient tolerated the procedure well, and was then taken to the recovery room in satisfactory condition. She is to follow up in 2-4 weeks for POC/follow-up. Findings: 2 ureter stones, both embedded in the mid ureter. Discharge Disposition: PACU Additional Comments: Resume anticoagulation within 2-4 hours, and patient returns to the floor. CC: Carlos Eagle MD
--- NOTE | 2017-03-08 11:29 | RADIOLOGY REPORT ---
EXAMINATION: XR ABDOMEN CLINICAL INDICATION: Right ureteroscopy. COMPARISON: CT images of the abdomen from 03/08/2017 TECHNIQUE: Intraoperative fluoroscopic imaging of the abdomen was utilized by Dr. Eagle. Number of saved images: 25. Fluoroscopy time: 1 minute, 50 seconds. Dose: 2.01 rad FINDINGS: Please refer to the operative report. Right ureteroscopy and retrograde pyeloureterography were performed and right ureteral stent deployed. IMPRESSION: Fluoroscopic imaging equipment was utilized within the operating room.
--- NOTE | 2017-03-08 11:55 | PN- Housestaff ---
Chasity Orozco 03/08/17 1155: Subjective Follow-up For: Possible Portal venous thrombus Syncope AAA Mild right hydroureteronephrosis Metastatic disease. Tele-Events Since Last Visit: Normal sinus rhythm no overnight events Subjective: Patient is seen and examined this morning still reports abdominal discomfort, otherwise vitals are stable. he is currently nothing by mouth for possible cystoscopy with Dr. Eagle. Review of Systems Constitutional: Denies: chills, diaphoresis, fever. EENTM: Denies: blurred vision, double vision, visual changes, eye pain, eye drainage. Cardiovascular: Denies: chest pain. Respiratory: Denies: cough, hemoptysis, orthopnea. Gastrointestinal: Denies: abdominal pain, bloating, constipation. Genitourinary: Denies: discharge, dysuria, frequency. Musculoskeletal: Denies: back pain, gout. Objective Last 24 Hrs of Vital Signs/I&O Vital Signs Date Time Temp Pulse Resp B/P B/P Pulse O2 O2 Flow FiO2 Mean Ox Delivery Rate 03/08 0916 188/82 03/08 0638 98.4 70 20 176/82 98 Room Air 03/08 0206 70 20 133/97 95 Room Air 03/08 0010 209/119 02/ 0006 200/90 02/ 0000 94 Room Air Room Air 02/ 0000 97.4 86 16 204/111 99 Room Air Intake & Output 03/08 1600 03/08 0800 02/ 0000 Intake Total 323.2 Output Total 1200 Balance -876.8 Intake, IV 323.2 Intake, Oral 0 Output, Urine 1200 Patient 142 lb Weight Physical Exam General Appearance: Alert, Oriented X3 Skin: No Rashes, No Breakdown Cardiovascular: Regular Rate, Normal S1, Normal S2 Lungs: Clear to Auscultation, Normal Air Movement Abdomen: Normal Bowel Sounds, Soft, No Tenderness Neurological: Normal Gait, Normal Speech Assessment/Plan Assessment: Mr Muñiz is a 72-year-old male with a PMH significant for HTN, AAA, prostate cancer with metastasis to bone, questionable diagnosis of hepatitis was brought into the emergency department complaining of right lower pain, emesis and possible syncope. Problem list Multiple syncopal episodes Hypertensive urgency on admission Possible portal vein thrombosis right mid ureter obstructing calculus with hydronephrosis History of a abdominal aortic aneurysm History of prostate cancer with bone metastases Plan Multiple syncopal episodes * Continue to monitor patient on telemetry floor. * 2 sets of troponin are negative with STT changes. * Echocardiogram is pending. * Will consider cardiology consult. Hypertensive urgency on admission * Blood pressure on admission was elevated 204/111 that dropped significantly to 133/97. * Antihypertensives were held during the night. * Current blood pressure is 186/90. * Will consider restarting beta tamika. Possible portal vein thrombosis * Patient has been started on IV heparin * Etiology of the possible portal vein thrombosis is unclear at this time. * Ultrasound of the abdomen for defervescence is pending * We will try to obtain records from the [facility] . right mid ureter obstructing calculus with hydronephrosis * Patient was seen by Dr. Eagle in the morning had right sided ureteroscopy with laser lithotripsy of stone and Right stent placement. History of prostate cancer with bone metastases * We will try to obtain records from the [facility] . History of a abdominal aortic aneurysm It appears the patient was aware that he had an aneurysm. Will compare imaging studies from previous hospitalizations. DVT PPX: Heparin Sub Q Code: FC for now to be confirmed when patient is more alert and oriented. Problem List: 1. Renal colic on right side 2. AAA (abdominal aortic aneurysm) 3. Portal vein thrombosis 4. Syncope Pain Ratin Pain Location: Abdominal pain Pain Goal: Remain pain free Pain Plan: PRN Tylenol and morphine Tomorrow's Labs & Rationales: PARACHUTE SUPERVISOR and BEP tomorrow Piter Apodaca MD 03/08/17 1625: Attending Review Statement Attending Statement Attending Statement: examined this patient, discuss w/resident/PA/ACTIVE DIRECTORY ARCHITECT, agreed w/resident/PA/ACTIVE DIRECTORY ARCHITECT, discussed with family, reviewed EMR data (avail), discussed with nursing, discussed with case mgmt, amended to note Attending Assessment/Plan: Patient seen and examined. Family present at the bedside. Status post lithotripsy and stent placement earlier on today. Is currently very drowsy but arousable. He is not in any distress. On examination lungs are clear bilaterally. Abdomen is soft and nontender. He has no peripheral edema. Recommendations: -Continue telemetry monitoring overnight. If patient remains without any significant arrhythmias will discontinue telemetry monitoring. Follow-up echocardiogram results. -Blood pressure has improved. Resume patient's home antihypertensive medications. -Continue on evaluation with IV heparin for his portal vein thrombosis. Obtain records from the [facility] to determine chronicity. The patient remains hemodynamically stable overnight and his hematuria improves will consider switching to Lovenox for long-term anticoagulant therapy. -Urology evaluation appreciated. Status post lithotripsy and stent placement today. Qiu catheter is in place draining bloody urine. Continue bladder irrigation as needed overnight. -Monitor CBCs and renal function closely. -Plan of care discussed with patient's son. Patient is on morphine for pain control for his metastatic prostate cancer. Patient is currently very drowsy postoperatively. Morphine may be resumed once he becomes more alert.
[2017-03-08 12:30] VITALS: BP 136/82; BP 166/82
[2017-03-08 13:54] VITALS: BP 186/90
--- NOTE | 2017-03-08 15:44 | ULTRASOUND REPORT ---
EXAMINATION: COMPLETE DUPLEX ULTRASOUND OF THE ABDOMEN CLINICAL INDICATION: Question portal vein thrombosis seen on CT scan of the abdomen and pelvis. COMPARISON: CT abdomen and pelvis from the same day. TECHNIQUE: Real-time abdominal ultrasound performed. Duplex Doppler ultrasound and pulse wave Doppler with spectral analysis were also performed. FINDINGS: No evidence of ascites. The liver is normal in size, with normal echogenicity. No focal liver lesions are seen. No evidence for intrahepatic biliary ductal dilatation. The main, right, and left portal veins demonstrate normal corrected hepatopetal venous waveforms. The right, middle, and left hepatic veins demonstrates normal hepatofugal venous waveforms. The splenic vein demonstrates normal direction of flow. No evidence for venous thrombosis. The hepatic artery demonstrates normal arterial waveforms. The gallbladder appears unremarkable without stones or colon cystitis. The common bile duct measures 1.0 cm. The visualized portion of the pancreas appear within normal limits, although the tail of the pancreas is poorly visualized secondary to bowel gas. Both kidneys are visualized and are normal in size, echogenicity, and cortical thickness. There is mild hydronephrosis bilaterally. The right kidney measures 11.5 cm in the sagittal plane, the left kidney measures 11.2 cm in sagittal plane. There is a 0.9 cm stone in the lower pole of the left kidney. There is a 1.6 x 1.8 x 1.9 cm cyst in the midpole of the right kidney. The spleen is upper limits of normal in size measuring 12.6 cm. There is an infrarenal abdominal aortic aneurysm measuring 5.4 x 4.9 cm. IMPRESSION: 1. Normal hepatic Doppler ultrasound. No sonographic evidence of portal vein thrombosis. 2. A 5.4 x 4.9 cm infrarenal abdominal aortic aneurysm. 3. Mild bilateral hydronephrosis. 4. Left lower pole 9 mm renal calculus.
--- NOTE | 2017-03-08 20:04 | ECHOCARDIOGRAM REPORT ---
WASHINGTON HOLLOWAY Age: 72 : 1945 Gender: M Exam Date: 03/08/2017 16:53 Exam Location: 1 North Ht (in): 64 Wt (lb): 142 BSA: 1.72 BP: 176 / 82 Ordering Physician: Mae Garcia MD Referring Physician: Mae Garcia MD Technologist: Noa Petersen [facility] Room Number: 185-02 Indications: PULMONARY HYPERTENSION Rhythm: Technical Quality: FINDINGS Left Ventricle Normal size left ventricle. Mildly abnormal left ventricular ejection fraction estimated at 40-45%. [place] hypokinetic. Thinned/scarred septum. Right Ventricle Normal right ventricular size and function. Right Atrium Normal right atrial size. Left Atrium Left atrial size at the upper limits of normal. Mitral Valve Moderate mitral annular calcification. Mild mitral regurgitation. Aortic Valve Aortic sclerosis. Mild aortic regurgitation. Tricuspid Valve Tricuspid valve is normal in structure and function. Mild tricuspid regurgitation. Pulmonic Valve Pulmonic valve not well visualized, grossly normal. Pericardium Normal pericardium. Great Vessels Mild aortic dilatation at the level of the sinotubular junction. CONCLUSIONS Mild to moderately reduced left ventricular systolic function with segmental wall motion abnormalities consistent with Coronary artery disease. Mild Aortic regurgitation and Mitral regurgitation. No significant Pulmonary hypertension noted. Bayron Oviedo M.D. (Electronically Signed) Final Date: 08 March 2017 20:04 MEASUREMENTS (Male / Female) Normal Values 2D ECHO LV Diastolic Diameter PLAX 4.6 cm 4.2 - 5.9 / 3.9 - 5.3 cm LV Systolic Diameter PLAX 3.6 cm 2.1 - 4.0 cm LV Fractional Shortening PLAX 21.7 % 25 - 46 % LV Ejection Fraction 2D Teich 44.1 % IVS Diastolic Thickness 0.8 cm LVPW Diastolic Thickness 1.0 cm LV Relative Wall Thickness 0.4 RV Internal Dim ED PLAX 2.9 cm 1.9 - 3.8 cm LVOT Diameter 1.8 cm Aortic Root Diameter 3.6 cm LA Systolic Diameter LX 3.7 cm 3.0 - 4.0 / 2.7 - 3.8 cm LA Volume 55.0 cm 18 - 58 / 22 - 52 cm Ascending Aorta Diameter 3.9 cm DOPPLER AV Peak Velocity 132.0 cm/s AV Peak Gradient 7.0 mmHg AV Mean Velocity 84.0 cm/s AV Mean Gradient 3.0 mmHg AV Velocity Time Integral 24.8 cm LVOT Peak Velocity 113.0 cm/s LVOT Peak Gradient 5.1 mmHg LVOT Mean Velocity 72.3 cm/s LVOT Mean Gradient 2.0 mmHg LVOT Velocity Time Integral 21.8 cm LVOT Stroke Volume 55.5 cm AV Area Cont Eq vti 2.2 cm AV Area Cont Eq pk 2.2 cm MV Peak Velocity 117.0 cm/s MV Peak Gradient 5.5 mmHg MV Mean Velocity 63.3 cm/s MV Mean Gradient 2.0 mmHg Mitral E Point Velocity 47.4 cm/s Mitral A Point Velocity 120.0 cm/s Mitral E to A Ratio 0.4 MV PHT Velocity 67.5 cm/s MV Deceleration [facility] 258.0 cm/s MV Pressure Half Time 78.5 ms MV Area PHT 2.8 cm MV Deceleration Time 195.0 ms TR Peak Velocity 111.0 cm/s TR Peak Gradient 4.9 mmHg Right Atrial Pressure 10.0 mmHg Pulmonary Artery Systolic Pressu 14.9 mmHg Right Ventricular Systolic Press 14.9 mmHg PV Peak Velocity 84.7 cm/s PV Peak Gradient 2.9 mmHg PV Mean Velocity 50.1 cm/s PV Mean Gradient 1.0 mmHg PV Velocity Time Integral 10.3 cm LV E' Lateral Velocity 5.5 cm/s Mitral E to LV E' Lateral Ratio 8.7 LV E' Septal Velocity 5.4 cm/s Mitral E to LV E' Septal Ratio 8.8
[2017-03-08 21:33] LABS: PTT 57 SEC (25-37)
[2017-03-08 22:18] VITALS: BP 152/84
[2017-03-09 04:20] LABS: ABSOLUTE BASOPHIL COUNT 0 /CUMM (0.0-0.2); ABSOLUTE EOSINOPHIL COUNT 0 /CUMM (0.0-0.7); ABSOLUTE GRANULOCYTE CT 11.5 /CUMM (1.4-6.5); ABSOLUTE LYMPH COUNT 1.1 /CUMM (1.2-3.4); BASOPHIL % 0.2 % (0.0-2.0); EOSINOPHIL % 0.1 % (0-5); GRANULOCYTE % 84.7 % (42.2-75.2); HEMATOCRIT 41.3 % (42-52); MEAN CORPUSCULAR HGB 29.9 PG (27.0-31.0); MEAN CORPUSCULAR HGB CONC 33.6 G/DL (33.0-37.0); MEAN CORPUSCULAR VOLUME 88.9 FL (80.0-94.0); PLATELET COUNT 94 /CUMM (130-400); RBC DISTRIBUTION WIDTH 14.7 % (11.5-14.5); RED BLOOD CELL CT 4.65 /CUMM (4.70-6.10)
[2017-03-09 04:25] LABS: WHITE BLOOD CELL COUNT 13.5 /CUMM (4.8-10.8)
[2017-03-09 04:40] LABS: PTT 119 SEC (25-37)
[2017-03-09 06:51] VITALS: BP 132/82
--- NOTE | 2017-03-09 07:42 | PN- Urology ---
Surgical Brief Attending Note Brief Attending Note: pT ALERT C/O VAGUE ABD. PAIN STILL. VSS AFEBRILE. ABD SOFT BUT TENDER, NO CVAT BILAT. VSS AFEBRILE. SPIKE IN WBC POST OP DESPITE PRE-OP ABX. URINE OUTPUT ADEQUATE BUT BLOOD TINGED (COMBINATION OF POST OP/STENT/WILSON) RECOMMEND: MANUALLY IRRIGATION Q 2-4HRS AND PRN HEMTURIA/CLOT WITH 30CC STERILE H20. CONTINUE ABX PER MED.- PER CULTURE RESULT CONTINUE ANTI-COAGULATION AND DC WILSON WHEN PT. WBC WNL, AND URINE OUTPUT CLEAR.
--- NOTE | 2017-03-09 07:45 | PN- Housestaff ---
Chasity Orozco 03/09/17 0745: Subjective Follow-up For: Portal venous thrombus-ruled out Syncope right mid ureter obstructing calculus with hydronephrosis S/P right sided ureteroscopy with laser lithotripsy History of prostate cancer with bone metastases Tele-Events Since Last Visit: no events on telemonitor Subjective: Patient is seen and examined this morning. Seems better than yesterday. Pain is well-controlled with extended-release morphine. Vital stable, denies any nausea. Patient was seen by Dr. Eagle this morning, urine appears still very dark(gross hematuria). We'll continue with bladder irrigation. Abdominal ultrasound did yesterday rule out any underlying venous thrombosis. We'll discontinue IV heparin and start the patient on prophylaxis subcutaneous heparin Review of Systems Constitutional: Denies: chills, diaphoresis, fever. EENTM: Denies: blurred vision, double vision, visual changes, eye pain. Cardiovascular: Denies: chest pain, edema, orthopena. Respiratory: Denies: cough, hemoptysis, orthopnea. Gastrointestinal: Denies: abdominal pain, bloating, diarrhea. Genitourinary: Denies: dysuria, frequency. Objective Last 24 Hrs of Vital Signs/I&O Vital Signs Date Time Temp Pulse Resp B/P B/P Pulse O2 O2 Flow FiO2 Mean Ox Delivery Rate 03/09 1010 83 118/64 03/09 1009 73 118/64 03/09 0651 99.6 73 18 132/82 98 Room Air 03/08 2218 98.8 74 18 152/84 97 Room Air 03/08 2205 74 152/84 03/08 1643 77 170/100 03/08 1410 97.0 78 20 96 Room Air 03/08 1354 186/90 Intake & Output 03/09 1600 03/09 0800 03/09 0000 Intake Total 520 220 Output Total 450 1250 Balance 70 -1030 Intake, IV 520 220 Output, Urine 450 1250 Physical Exam General Appearance: Alert, Oriented X3 Skin: No Rashes, No Breakdown Skin Temp/Moisture Exam: Cool/Dry Sepsis Skin Exam (color): Normal for Ethnicity, Cyanotic Cardiovascular: Regular Rate, Normal S1, Normal S2 Lungs: Clear to Auscultation Abdomen: Normal Bowel Sounds, Soft Current Medications: Current Medications Sig/Fareed Start time Last Medication Dose Route Stop Time Status Admin Acetaminophen 1,000 MG Q6P PRN 03/08 0815 AC 03/08 N/A 1 UNIT IV 1321 Dextrose/Sodium 1,000 ML Q13H 03/08 1545 DC 03/08 Chloride IV 03/09 0444 1801 Finasteride 5 MG DAILY 03/09 1000 AC 03/09 PO 1010 Heparin Sodium 5,000 UNIT Q8 03/09 2200 UNVr (Porcine) SC Heparin Sodium 2,576 UNIT BOLUS ONE 03/08 2215 DC 03/09 (Porcine) IV 03/08 2216 0022 Heparin Sodium 25,000 UNIT Q24H 03/08 0230 DC 03/09 (Porcine) IV 0556 Sodium Chloride 500 ML Labetalol HCl 200 MG BID 03/08 1422 AC 03/09 PO 1010 Morphine Sulfate 15 MG Q4P PRN 03/09 0800 AC 03/09 PO 0804 Morphine Sulfate 15 MG Q8 PRN 03/09 0047 DC 03/09 PO 0417 Morphine Sulfate 10 MG .STK-MED ONE 03/09 0015 DC IM 03/09 0016 Morphine Sulfate 2 MG ONCE ONE 03/08 2345 DC 03/09 IV 03/08 2346 0015 Morphine Sulfate 15 MG Q6PRN PRN 03/08 2345 DC PO Sodium Chloride 1,000 ML Q10H 03/08 0445 DC 03/08 IV 1320 Assessment/Plan Assessment: Mr Muñiz is a 72-year-old male with a PMH significant for HTN, AAA, prostate cancer with metastasis to bone, questionable diagnosis of hepatitis was brought into the emergency department complaining of right lower pain, emesis and possible syncope. Problem list Multiple syncopal episodes Hypertensive urgency on admission Portal venous thrombus-ruled out Right mid ureter obstructing calculus with hydronephrosis S/P right sided ureteroscopy with laser lithotripsy History of prostate cancer with bone metastases Plan Multiple syncopal episodes * Continue to monitor patient on telemetry floor. * ACS ruled out . * Echocardiogram done yesterday showed an EF of 40-45% with [place] hypokinetic with Thinned/scarred septum. * Though his multiple syncopal episodes are more likely related to his severe pain from ureteric stone, will obtain cardiology consult in view of cardiomyopathy on echocardiogram results. * Echocardiogram is pending. * Will consider cardiology consult. Hypertensive urgency on admission * Blood pressure on admission was elevated 204/111 that dropped significantly to 133/97. * Continue with antihypertensives Portal venous thrombus-ruled out * Abdominal ultrasound did yesterday rule out any underlying venous thrombosis. We'll discontinue IV heparin and start the patient on prophylaxis subcutaneous heparin Right mid ureter obstructing calculus with hydronephrosis S/P right sided ureteroscopy with laser lithotripsy * Patient was seen by Dr. Eagle this morning, urine appears still very dark( gross hematuria). We'll continue with bladder irrigation. * Leukocytosis likely reactive status is likely reactive we'll obtain urine starts to clear up History of prostate cancer with bone metastases * We will try to obtain records [facility] . History of a abdominal aortic aneurysm It appears the patient was aware that he had an aneurysm. Will compare imaging studies from previous hospitalizations. DVT PPX: Heparin Sub Q Code: FC for now to be confirmed when patient is more alert and oriented. Problem List: 1. Syncope 2. Renal colic on right side Pain Ratin Pain Location: Abdominal discomfort Pain Goal: Remain pain free Pain Plan: PRN morphine Tomorrow's Labs & Rationales: HEEL SHAVER and BEP tomorrow Piter Apodaca MD 03/09/17 1244: Attending MD Review Statement Attending Statement Attending MD Statement: examined this patient, discuss w/resident/PA/NANNY BABYSITTER, agreed w/resident/PA/NANNY BABYSITTER, reviewed EMR data (avail), discussed with nursing, discussed with case mgmt, amended to note Attending Assessment/Plan: Patient seen and examined. Lying comfortably in bed not in any acute distress. Alert and oriented 3. No issues overnight reported by nursing staff. Continues to have bloody urine draining through the Qiu catheter. He is afebrile. He is hemodynamically stable. Complains of generalized pain improved with his narcotic regimen. On examination heart sounds are regular. Lungs are clear to auscultation bilaterally. Abdomen is soft and nontender. He has no peripheral edema. Problems: 1. Syncope 2. Cardiomyopathy; with systolic dysfunction and apical hypokinesis; query chronicity. 3. Portal vein thrombosis ruled out on Doppler ultrasound of the liver. 4. Infrarenal abdominal aortic aneurysm 5. Bilateral hydronephrosis secondary to renal stones. Status post lithotripsy on right renal stent placement. 6. Metastatic prostate cancer 7. Leukocytosis; likely reactive following procedure yesterday. 8. Chronic pain syndrome Plan: -His syncope was initially presumed to be brought about by his severe pain from his hydronephrosis. However in view of his cardiomyopathy he will benefit from further cardiology consultation. Continue telemetry monitoring for now. So far he has had no arrhythmias noted. -Portal vein thrombosis has been ruled out. Discontinue heparin infusion. DVT prophylaxis with subcutaneous heparin - His hematuria is secondary to his renal stones. Continue bladder irrigation as recommended by the hematology service. Hemoglobin level is currently stable. -Leukocytosis appears to reactive. Obtain urine cultures, When hematuria starts to improve at present he has extremely bloody urine in his urine bag. -Continue his opiate regimen for his chronic pain secondary to his metastatic disease. - Discontinue IV fluids.Resume his Aldactone. Resume his Flomax.
[2017-03-09 10:09] VITALS: BP 118/64
--- NOTE | 2017-03-09 10:09 | Discharge Summary ---
Visit Information Visit Dates Admission Date: 03/08/17 Discharge Date: 03/14/17 Hospital Course Course Attending Physician: Piter Apodaca MD Primary Care Physician: Ajith MOFFETT,[facility] Course: Mr Holloway is a 72-year-old male with a PMH significant for HTN, AAA, prostate cancer with metastasis to bone, questionable diagnosis of hepatitis was brought into the emergency department complaining of right lower pain, emesis and possible syncope. Following problems were addressed while patient was on telemetry floor. 1.Multiple syncopal episodes from malignant ventricular dysrhythmia related to an acute IA accompanied by low EF Patient was kept on telemetry floor after admission, remained asymptomatic with no evidence of arrhythmias on the monitoring and evaluation advisor, initially he was ruled out for ACS with 2 negative sets of troponin and EKG, later on repeated EKG showed diffuse T wave inversions in the anterior inferior leads, with troponin came back 2.19, cardiology was consulted and heparin was restarted . Echocardiogram was done that showed Cardiomyopathy (EF of 40-45% )with segmental wall motion abnormalities). Troponins trended down however EKGs showed persistent T wave inversions ( consistent with diffuse ischemia). Patient remained hemodynamically stable and asymptomatic, cardiac cath was planned initially but later on postponed due to persistent gross hematuria after cystoscopy. Repeated echocardiogram showed similar results(EF of 40%), Patient was discharged home on 85 mg of aspirin daily with atorvastatin labetalol and aldactone. Advisd to f/u with cardiology as an outpatient, patient need to be started on MATT inhibitor's as an outpatient after cardiology evaluation in the setting of systolic dysfunction. 2. Right mid ureter obstructing calculus with hydronephrosis S/P right sided ureteroscopy with laser lithotripsy: CAT scan of the abdomen showed Right mid ureter obstructing calculus with hydronephrosis, urology was consulted, patient had right-sided right sided ureteroscopy with laser lithotripsy done during the hospitalization. 3.Portal venous thrombus-ruled out: Patient was admitted to telemetry floor, he was started on IV heparin due to the concerns of portal vein thrombosis on CAT scan results however abdominal ultrasound to rule out any venous thrombosis and heparin was stopped. 4. History of prostate cancer with bone metastases: As per information obtained from the son, patient has been worked for prostate cancer at [facility], couldn't able to tolerate chemotherapy initially now on xtandi. Patient would follow-up with this oncologist as an outpatient 5. History of a abdominal aortic aneurysm It appeared the patient was aware that he had an aneurysm. Will compare imaging studies from previous hospitalizations. DVT PPX: Heparin Code: FC for now Allergies: Coded Allergies: No Known Allergies (03/08/17) Significant Procedures: XAM TYPE: US - US-RENAL/KIDNEY EXAMINATION: US RETROPERITONEAL COMPLETE (RENAL) CLINICAL INFORMATION: Hematuria.. COMPARISON: CT scan abdomen pelvis March 08, 2017. Ultrasound of abdomen March 08, 2017. TECHNIQUE: Real-time imaging of the kidneys and bladder. Color Doppler exam used. FINDINGS: RIGHT KIDNEY: 12.1 x 5.8 x 6.2 cm (SAG x AP x TRV). There is moderate hydronephrosis of the right kidney. This is similar to the CAT scan March 08, 2017. There is no calculi. There are cortical cysts. These are anechoic. In the midpole there is a 1.8 cm cyst. The lower pole there is a 2.6 cm cyst. LEFT KIDNEY: 12.4 x 5.5 x 5.5 cm (SAG x AP x TRV). There is no hydronephrosis. The distended renal pelvis and calyces seen on the CAT scan March 27, 2017 not seen on this exam. There are nonobstructive calculi. The lower pole there is a 6 mm stone and an adjacent 7 mm stone. These are unchanged since CAT scan study. There are anechoic cysts. Lower pole there is a 2.7 cm cyst, 5.8 cm cyst and 2.1 cm cyst. BLADDER: Qiu catheter in place. Bladder is empty. Ureteral jets are not seen. IMPRESSION: 1. Resolved hydronephrosis of the right kidney since prior CAT scan March 08, 2017. No right renal stones seen. Right renal cyst. 2. No change to small nonobstructive calculi in lower pole left kidney. No hydronephrosis of left kidney. Stable lower pole renal cyst.. DICTATED BY: Keegan Nolasco MD DATE/TIME DICTATED:03/13/1735 MOLDED PARTS INSPECTOR:LEONARD DATE/TIME TRANSCRIBED:03/13/1735 CONFIDENTIAL, DO NOT COPY WITHOUT APPROPRIATE AUTHORIZATION. <Electronically signed in Other Vendor System> SIGNED BY: Keegan Nolasco MD 03/13/17 0045 WASHINGTON HOLLOWAY Age: 72 : 1945 Gender: M Exam Date: 03/11/2017 10:18 Exam Location: 1 [address] Ht (in): 64 Wt (lb): 142 BSA: 1.72 BP: 124 / 78 Ordering Physician: Chasity Orozco MD Referring Physician: Mag Morejon MD Technologist: Noa Petersen [facility] Room Number: [id number] Indications: CARDIOMYOPATHY Rhythm: Sinus Technical Quality: Good FINDINGS Left Ventricle Normal size left ventricle. Mildly abnormal left ventricular ejection fraction estimated at 40-45%. Hypokinetic anterior wall. Hypokinetic lateral wall. Hypokinetic septum. [place] hypokinetic. Right Ventricle Right ventricle not well visualized, grossly normal. Right Atrium Normal right atrial size. Left Atrium Left atrial size at the upper limits of normal. Mitral Valve Mitral valve thickened. Mitral annular calcification. Mild mitral regurgitation. Aortic Valve Trileaflet aortic valve. Diffuse thickening (sclerosis) of the aortic valve cusps without reduced excursion. No aortic stenosis. No aortic regurgitation. Tricuspid Valve Tricuspid valve not well visualized, grossly normal. Trace to mild tricuspid regurgitation. Right ventricular systolic pressure estimated at 28 mmHg. Pulmonic Valve Pulmonic valve not well visualized. Pericardium No pericardial effusion. Great Vessels Aortic root and proximal ascending aorta not well visualized, grossly normal. CONCLUSIONS 1. This was a limited followup study performed to reassess LV systolic function and wall motion. 2. Aortic sclerosis is present. 3. Mitral leaflet thickening is present with anular calcification and mild mitral insufficiency. 4. There is no pericardial fluid present. 5. The left ventricular chamber size is normal with segmental hypokinesia involving the mid to distal septum, anterolateral and anteroapical segments. The ejection fraction is approximately 45%. 6. Mild tricuspid insufficiency is presenet with no evidence of pulmonary hypertension. Mag Morejon M.D. (Electronically Signed) Final Date: 13 March 2017 12:56 MEASUREMENTS (Male / Female) Normal Values 2D ECHO LV Diastolic Diameter PLAX 4.5 cm 4.2 - 5.9 / 3.9 - 5.3 cm LV Systolic Diameter PLAX 2.9 cm 2.1 - 4.0 cm LV Fractional Shortening PLAX 35.6 % 25 - 46 % LV Ejection Fraction 2D Teich 65.2 % IVS Diastolic Thickness 1.3 cm LVPW Diastolic Thickness 1.3 cm LV Relative Wall Thickness 0.6 DOPPLER TR Peak Velocity 232.0 cm/s TR Peak Gradient 21.5 mmHg Right Atrial Pressure 5.0 mmHg Pulmonary Artery Systolic Pressu 26.5 mmHg Right Ventricular Systolic Press 26.5 mmHg DICTATED BY: Deacon Morejon MD DATE/TIME DICTATED:03/13/171255 MOLDED PARTS INSPECTOR:LEONARD DATE/TIME TRANSCRIBED:03/13/171255 CONFIDENTIAL, DO NOT COPY WITHOUT APPROPRIATE AUTHORIZATION. <Electronically signed in Other Vendor System> SIGNED BY: Deacon Morejon MD 03/13/17 1257 Disposition Summary Disposition Principal Diagnosis: Multiple syncopal episodes from malignant ventricular dysrhythmia related to an acute IA accompanied by low EF Additional Diagnosis: Hydronephrosis requiring right sided ureteroscopy with laser lithotripsy Metastatic prostate cancer. Discharge Disposition: SNF Discharge Instructions General Discharge Information Code Status: Full Code Patient's Diet: regular diet Patient's Activity: As tolerated Follow-Up Instructions/Appts: 1. Please follow-up with the PCP within 1-2 weeks after discharge. 2. Please follow-up with the urology within 1-2 weeks after discharge. 3. Follow-up with your instructor dancing , Dr. Morejon within 1 week after discharge (We will need to address starting him on MATT-I as outp) Medications at Discharge Discharge Medications: Continue taking these medications: Enzalutamide (Xtandi) 40 MG CAPSULE 4 Tablet ORAL DAILY Comments: NOT GIVEN THIS ADMISSION Morphine Sulfate (Morphine Sulfate) 30 MG TABLET 1 Tablet ORAL Every 4 hours Comments: Last Taken:03/14/17 Time:10:06A.M Simvastatin (Simvastatin*) 80 MG TABLET 1 Tablet ORAL DAILY Comments: Last Taken:03/14/17 Time:4:24P.M Labetalol HCl (Labetalol HCl) 200 MG TABLET 1 Tablet ORAL TWICE DAILY Comments: Last Taken:03/14/17 Time:1000A.M Spironolactone (Aldactone) 25 MG TABLET 1 Tablet ORAL DAILY Comments: NOT GIVEN THIS ADMISSION Calcium Carbonate (Oysco-500) 500 MG CALCIUM (1,250 MG) TABLET 1 Tablet ORAL DAILY Comments: NOT GIVEN THIS ADMISSION Tamsulosin HCl (Flomax) 0.4 MG CAP.ER.24H 1 Capsule ORAL DAILY Comments: NOT GIVEN THIS ADMISSION Cyanocobalamin (Vitamin B-12) (B-12) 1,000 MCG TABLET 1 Tablet ORAL DAILY Comments: NOT GIVEN THIS ADMISSION Start taking the following new medications: Aspirin (Ecotrin*) 81 MG TABLET. 1 Tablet ORAL DAILY Qty = 60 No Refills Comments: Last Taken:03/14/17 Time:10:02A.M Copies To: Ajith MOFFETT,Sky Ahn Attending Review Statement Documenting Attending: Piter Apodaca MD Other Findings: Patient medically stable to be discharged home today. He is to follow-up with cardiology service as an outpatient. He is noted to have systolic dysfunction, his blood pressure has been stable on labetalol. Patient is to follow-up with the cardiology service as an outpatient. The cardiology service will follow up with the patient regarding initiation of MATT inhibitor/ARB therapy.
--- NOTE | 2017-03-09 14:09 | Patient Discharge Instructions ---
See Addendum Discharge Instructions General Discharge Information You were seen/treated for: .Multiple syncopal episodes from malignant ventricular dysrhythmia related to an acute [place] accompanied by low EF Right mid ureter obstructing calculus with hydronephrosis S/P right sided ureteroscopy with laser lithotripsy. Special Instructions: Patient will be transferred to For cardiac cath Diet Recommended Diet: Heart Healthy Activity Activity Self Limited: Yes Acute Coronary Syndrome Inclusion Criteria At DC or during hospital stay patient has or had the following: ACS DIAGNOSIS No Discharge Core Measures Meds if any: Prescribed or Continued at Discharge Meds if any: NOT Prescribed or Continued at Discharge Congestive Heart Failure Inclusion Criteria At DC or during hospital stay patient has or had the following: CHF DIAGNOSIS No Discharge Core Measures Meds if any: Prescribed or Continued at Discharge Meds if any: NOT Prescribed or Continued at Discharge Cerebrovascular accident Inclusion Criteria At DC or during hospital stay patient has or had the following: CVA/TIA Diagnosis No Discharge Core Measures Meds if any: Prescribed or Continued at Discharge Meds if any: NOT Prescribed or Continued at Discharge Venous thromboembolism Inclusion Criteria VTE Diagnosis No VTE Type NONE VTE Confirmed by (Test) NONE Discharge Core Measures - Per Current guidelines, there needs to be overlap - treatment for the first 5 days of Warfarin therapy. - If discharged on Warfarin prior to 5 days of - overlap therapy, the patient will need to be - assessed for post discharge needs including - *Post discharge parental anticoagulation - *Warfarin and/or parental anticoagulation education - *Follow up date to check INR post discharge At least 5 days overlap therapy as Inpatient No Meds if any: Prescribed or Continued at Discharge Note: Overlap Therapy is Warfarin and Anticoagulant Meds if any: NOT Prescribed or Continued at Discharge
--- NOTE | 2017-03-09 14:38 | Cons- Cardiology ---
General Information and HPI Consulting Request Date of Consult: 03/09/17 Requested By: Piter Apodaca MD Reason for Consult: Syncope; Cardiomyopathy; Source of Information: patient, old records History of Present Illness: The patient is a 72 year old male who follows at the [facility]. His PMG is significant for HTN, infrarenal AAA, prostate cancer with bone mets, etc. He is admitted via the ER with several episodes of what the patient describes as presyncope, with questionable loss of consciousness and severe RLQ pain. He denies any known cardiac history and denies any other cardiac symptoms at the present time or at the time of the episodes. Despite the patient's story, his daughter apparently describes about 1 minutes of unresponsiveness followed by subsequent brief episodes after the EMS arrived. ON the monitor at the time of my examination, the monitor showed significant T inversion and the repeat ECG demonstrates diffuse T wave changes suggestive of ischemia. Allergies/Medications Allergies: Coded Allergies: No Known Allergies (03/08/17) Home Med List: Calcium Carbonate (Oysco-500) 500 MG CALCIUM (1,250 MG) TABLET 1 TAB PO DAILY VITAMIN (Reported) Cyanocobalamin (Vitamin B-12) (B-12) 1,000 MCG TABLET 1 TAB PO DAILY VITAMIN (Reported) Enzalutamide (Xtandi) 40 MG CAPSULE 4 TAB PO DAILY PROSTATE CANCER (Reported) Labetalol HCl 200 MG TABLET 1 TAB PO BID HTN (Reported) Morphine Sulfate 30 MG TABLET 1 TAB PO Q4 PAIN (Reported) Simvastatin (Simvastatin*) 80 MG TABLET 1 TAB PO DAILY CHOLESTEROL (Reported) Spironolactone (Aldactone) 25 MG TABLET 1 TAB PO DAILY HTN (Reported) Tamsulosin HCl (Flomax) 0.4 MG CAP.ER.24H 1 CAP PO DAILY PROSTATE (Reported) Current Medications: Current Medications Sig/Fareed Start time Last Medication Dose Route Stop Time Status Admin Acetaminophen 1,000 MG Q6P PRN 03/08 0815 AC 03/08 N/A 1 UNIT IV 1321 Dextrose/Sodium 1,000 ML Q13H 03/08 1545 DC 03/08 Chloride IV 03/09 0444 1801 Finasteride 5 MG DAILY 03/09 1000 AC 03/09 PO 1010 Heparin Sodium 5,000 UNIT Q8 03/09 2200 AC (Porcine) SC Heparin Sodium 2,576 UNIT BOLUS ONE 03/08 2215 DC 03/09 (Porcine) IV 03/08 2216 0022 Heparin Sodium 25,000 UNIT Q24H 03/08 0230 DC 03/09 (Porcine) IV 0556 Sodium Chloride 500 ML Labetalol HCl 200 MG BID 03/08 1422 AC 03/09 PO 1010 Morphine Sulfate 15 MG Q4P PRN 03/09 0800 AC 03/09 PO 0804 Morphine Sulfate 15 MG Q8 PRN 03/09 0047 DC 03/09 PO 0417 Morphine Sulfate 10 MG .STK-MED ONE 03/09 0015 DC IM 03/09 0016 Morphine Sulfate 2 MG ONCE ONE 03/08 2345 DC 03/09 IV 03/08 2346 0015 Morphine Sulfate 15 MG Q6PRN PRN 03/08 2345 DC PO Potassium Chloride 40 MEQ ONCE ONE 03/09 1415 DC PO 03/09 1416 Sodium Chloride 1,000 ML Q10H 03/08 0445 DC 03/08 IV 1320 Past History Travel History Traveled to [place] past 21 day No Medical History Neurological: NONE EENT: NONE Cardiovascular: aortic aneurysm, hypertension Respiratory: COPD Gastrointestinal: NONE Hepatic: questionable hx of hepatitis Renal: NONE Musculoskeletal: NONE Psychiatric: NONE Endocrine: NONE Blood Disorders: NONE Cancer(s): prostate cancer (METS TO BONE) Surgical History Surgical History: non-contributory Family History Relations & Conditions If Any: Relation not specified for: *No pertinent family history Psychosocial History Where Do You Live? Home Who Do You Live With? child Primary Language: Andorran Smoking Status: Current Everyday Smoker ETOH Use: denies use Illicit Drug Use: denies illicit drug use Functional Ability Ambulation: cane Exam & Diagnostic Data Vital Signs and I&O Vital Signs Date Time Temp Pulse Resp B/P B/P Pulse O2 O2 Flow FiO2 Mean Ox Delivery Rate 03/09 1010 83 118/64 03/09 1009 73 118/64 03/09 0651 99.6 73 18 132/82 98 Room Air 03/08 2218 98.8 74 18 152/84 97 Room Air 03/08 2205 74 152/84 03/08 1643 77 170/100 Intake & Output 03/09 1600 03/09 0800 03/09 0000 03/08 1600 03/08 0800 03/08 0000 Intake Total 520 220 323.2 Output Total 450 5872 176 1982 Balance 70 -1030 -450 -876.8 Intake, IV 520 220 323.2 Intake, Oral 0 Output, Urine 450 4442 308 9865 Patient 142 lb Weight Labs/Dany Results: Laboratory Tests 03/09 03/09 03/08 1230 0400 2046 Chemistry Sodium (137 - 145 mmol/L) 141 Potassium (3.5 - 5.1 mmol/L) 3.4 L Chloride (98 - 107 mmol/L) 103 Carbon Dioxide (22 - 30 mmol/L) 25 Anion Gap (5 - 16) 14 BUN (9 - 20 mg/dL) 13 Creatinine (0.7 - 1.2 mg/dL) 0.6 L Estimated GFR (>60 ml/min) > 60 BUN/Creatinine Ratio (7 - 25 %) 21.7 Troponin I (<0.11 ng/ml) Pending Coagulation APTT (25 - 37 SEC) Pending 119 *H 57 H Hematology CBC w Diff NO MAN DIFF REQ WBC (4.8 - 10.8 /CUMM) 13.5 H RBC (4.70 - 6.10 /CUMM) 4.65 L Hgb (14.0 - 18.0 G/DL) 13.9 L Hct (42 - 52 %) 41.3 L MCV (80.0 - 94.0 FL) 88.9 MCH (27.0 - 31.0 PG) 29.9 MCHC (33.0 - 37.0 G/DL) 33.6 RDW (11.5 - 14.5 %) 14.7 H Plt Count (130 - 400 /CUMM) 94 L MPV (7.4 - 10.4 FL) 9.0 Gran % (42.2 - 75.2 %) 84.7 H Lymphocytes % (20.5 - 51.1 %) 7.8 L Monocytes % (1.7 - 9.3 %) 7.2 Eosinophils % (0 - 5 %) 0.1 Basophils % (0.0 - 2.0 %) 0.2 Absolute Granulocytes (1.4 - 6.5 /CUMM) 11.5 H Absolute Lymphocytes (1.2 - 3.4 /CUMM) 1.1 L Absolute Monocytes (0.10 - 0.60 /CUMM) 1.0 H Absolute Eosinophils (0.0 - 0.7 /CUMM) 0 Absolute Basophils (0.0 - 0.2 /CUMM) 0 03/08 03/08 03/08 1247 1200 0835 Chemistry Troponin I Cancelled Coagulation APTT (25 - 37 SEC) 74 H Other Body Source Stone Analysis Pending Stone Source Pending Stone Nidus Pending Stone Comment Pending Stone Comment Pending 03/08 03/08 0635 0025 Chemistry Sodium (137 - 145 mmol/L) 144 Potassium (3.5 - 5.1 mmol/L) 4.0 Chloride (98 - 107 mmol/L) 104 Carbon Dioxide (22 - 30 mmol/L) 26 Anion Gap (5 - 16) 13 BUN (9 - 20 mg/dL) 11 Creatinine (0.7 - 1.2 mg/dL) 0.6 L Estimated GFR (>60 ml/min) > 60 BUN/Creatinine Ratio (7 - 25 %) 18.3 Troponin I (<0.11 ng/ml) 0.06 Hematology CBC w Diff NO MAN DIFF REQ WBC (4.8 - 10.8 /CUMM) 7.4 RBC (4.70 - 6.10 /CUMM) 4.34 L Hgb (14.0 - 18.0 G/DL) 13.1 L Hct (42 - 52 %) 39.0 L MCV (80.0 - 94.0 FL) 89.8 MCH (27.0 - 31.0 PG) 30.2 MCHC (33.0 - 37.0 G/DL) 33.6 RDW (11.5 - 14.5 %) 14.8 H Plt Count (130 - 400 /CUMM) 84 L MPV (7.4 - 10.4 FL) 9.6 Gran % (42.2 - 75.2 %) 80.0 H Lymphocytes % (20.5 - 51.1 %) 13.9 L Monocytes % (1.7 - 9.3 %) 5.4 Eosinophils % (0 - 5 %) 0.2 Basophils % (0.0 - 2.0 %) 0.5 Absolute Granulocytes (1.4 - 6.5 /CUMM) 5.9 Absolute Lymphocytes (1.2 - 3.4 /CUMM) 1.0 L Absolute Monocytes (0.10 - 0.60 /CUMM) 0.4 Absolute Eosinophils (0.0 - 0.7 /CUMM) 0 Absolute Basophils (0.0 - 0.2 /CUMM) 0 Urines Urine Color (YEL,AMB,STR) YEL Urine Clarity (CLEAR) HAZY H Urine pH (5.0 - 8.0) 7.5 Ur Specific [place] (1.001 - 1.035) 1.020 Urine Protein (NEG,<30 MG/DL) NEG Urine Ketones (NEG) NEG Urine Nitrite (NEG) NEG Urine Bilirubin (NEG) NEG Urine Urobilinogen (0.1 - 1.0 EU/dl) 1.0 Ur Leukocyte Esterase (NEG) NEG Ur Microscopic SEDIMENT EXAMINED Urine RBC (0 - 5 /HPF) 15-25 H Urine WBC (0 - 2 /HPF) RARE Ur Epithelial Cells (NONE,FEW) RARE Urine Mucus (FEW,NONE) RARE Urine Hemoglobin (NEG) LARGE H Urine Glucose (N MG/DL) NEG 03/08 0015 Chemistry Sodium (137 - 145 mmol/L) 142 Potassium (3.5 - 5.1 mmol/L) 3.8 Chloride (98 - 107 mmol/L) 104 Carbon Dioxide (22 - 30 mmol/L) 25 Anion Gap (5 - 16) 14 BUN (9 - 20 mg/dL) 13 Creatinine (0.7 - 1.2 mg/dL) 0.6 L Estimated GFR (>60 ml/min) > 60 BUN/Creatinine Ratio (7 - 25 %) 21.7 Glucose (65 - 99 mg/dL) 117 H Lactic Acid (0.7 - 2.1 mmol/L) 1.5 Calcium (8.4 - 10.2 mg/dL) 9.2 Total Bilirubin (0.2 - 1.3 mg/dL) 0.9 AST (17 - 59 U/L) 25 ALT (21 - 72 U/L) 23 Alkaline Phosphatase (< 127 U/L) 78 Troponin I (<0.11 ng/ml) 0.05 Total Protein (6.3 - 8.2 g/dL) 7.5 Albumin (3.5 - 5.0 g/dL) 4.1 Globulin (1.9 - 4.2 gm/dL) 3.4 Albumin/Globulin Ratio (1.1 - 2.2 %) 1.2 Coagulation PT (9.4 - 12.5 SEC) 12.4 INR (0.90 - 1.17) 1.18 H APTT (25 - 37 SEC) 31 Hematology CBC w Diff NO MAN DIFF REQ WBC (4.8 - 10.8 /CUMM) 9.1 RBC (4.70 - 6.10 /CUMM) 4.69 L Hgb (14.0 - 18.0 G/DL) 14.1 Hct (42 - 52 %) 41.4 L MCV (80.0 - 94.0 FL) 88.4 MCH (27.0 - 31.0 PG) 30.0 MCHC (33.0 - 37.0 G/DL) 34.0 RDW (11.5 - 14.5 %) 14.5 Plt Count (130 - 400 /CUMM) 91 L MPV (7.4 - 10.4 FL) 8.8 Gran % (42.2 - 75.2 %) 76.7 H Lymphocytes % (20.5 - 51.1 %) 15.2 L Monocytes % (1.7 - 9.3 %) 7.1 Eosinophils % (0 - 5 %) 0.8 Basophils % (0.0 - 2.0 %) 0.2 Absolute Granulocytes (1.4 - 6.5 /CUMM) 7.0 H Absolute Lymphocytes (1.2 - 3.4 /CUMM) 1.4 Absolute Monocytes (0.10 - 0.60 /CUMM) 0.6 Absolute Eosinophils (0.0 - 0.7 /CUMM) 0.1 Absolute Basophils (0.0 - 0.2 /CUMM) 0 Diagnostic Data EKG Results NSR with non specific STT changes. Assessment/Plan Assessment/Plan Assessment: 1. Syncope / presyncope 2. Cardiomyopathy with segmental wall motion abnormalities. 3. Hypertensive urgency - resolved 4. Infrarenal AAA 5. Prostate cancer with ? bone mets 6. Nephrolithiasis 7. Leukocytosis 8. Thrombocytopenia 9. Mild hypokalemia Recommendations: - Review echocardiogram - Repeat ECG - Recheck troponin if there are any ECG changes - Obtain records from [facility] for further review - Check orthostatic heart rate and BP qshift please. - Consideration for eventual nuclear stress test. - check proBNP - Repeat limited echocardiogram to recheck LV function and regional wall motion. Consult Acknowledgment - Thank you for your consult request.
--- NOTE | 2017-03-09 14:58 | Event Note ---
Event Note Event Note: Patient was seen by Dr. Morejon this afternoon, repeated EKG this afternoon showed new EKG changes (diffuse T wave inversions in the anteroinferior leads as compared to the previous EKG ). Troponin was added onto the morning that came up to 2.19 patient was restarted back on heparin asymptomatic denies any chest discomfort or breathing palpitations. We'll do serial troponin and EKG. Dr. Vega's on board, will follow the recommendations. In case patient becomes acutely symptomatic, needs to be transferred for possible cardiac cath..
[2017-03-09 15:08] VITALS: BP 100/64
[2017-03-09 15:13] LABS: PTT 48 SEC (25-37)
[2017-03-09 22:48] VITALS: BP 112/64
[2017-03-10 00:40] LABS: PTT 37 SEC (25-37)
[2017-03-10 07:26] VITALS: BP 102/64
--- NOTE | 2017-03-10 08:13 | PN- Housestaff ---
Mark MOFFETT,Emily 03/10/17812: Subjective Follow-up For: Portal vein thrombus, syncope, renal calculi, hypertensive urgency-resolved Complaints: pain scale (0-10) (no complaints) Tele-Events Since Last Visit: Sinus rhythm heart rate 80 Subjective: Patient was seen and examined at bedside today. He offered no complaint. He said he feels fine. No overnight events. He denies chest pain, chest pressure, nausea, dizziness, palpitation, shortness of breath. Review of Systems Constitutional: Reports: no symptoms. Cardiovascular: Reports: no symptoms. Respiratory: Reports: no symptoms. Gastrointestinal: Reports: no symptoms. Genitourinary: Reports: no symptoms. Musculoskeletal: Reports: no symptoms. Objective Last 24 Hrs of Vital Signs/I&O Vital Signs Date Time Temp Pulse Resp B/P B/P Pulse O2 O2 Flow FiO2 Mean Ox Delivery Rate 03/10 0826 78 102/64 03/10 0726 97.6 78 18 102/64 94 Room Air 03/09 2248 97.8 81 18 112/64 94 03/09 2046 83 100/64 03/09 1508 97.6 83 18 100/64 94 Room Air Intake & Output 03/10 1600 03/10 0800 03/10 0000 Intake Total 204.8 560 Output Total 350 400 Balance -145.2 160 Intake, IV 164.8 Intake, Oral 40 560 Output, Urine 350 400 Patient 142 lb Weight Physical Exam General Appearance: Alert, Oriented X3, Cooperative, No Acute Distress Skin: No Breakdown Cardiovascular: Regular Rate, Normal S1, Normal S2, No Murmurs Lungs: Clear to Auscultation Abdomen: Normal Bowel Sounds, Soft, No Tenderness, No Hepatospenomegaly Neurological: Strength at 5/5 X4 Ext, Normal Tone, Sensation Intact, Cranial Nerves 3-12 NL Extremities: No Edema Vascular: Pulses Symmetrical Current Medications: Current Medications Sig/Fareed Start time Last Medication Dose Route Stop Time Status Admin Acetaminophen 1,000 MG Q6P PRN 03/08 0815 AC 03/08 N/A 1 UNIT IV 1321 Aspirin 325 MG DAILY 03/10 1030 AC 03/10 PO 1133 Atorvastatin Calcium 80 MG 1700 03/10 1700 AC PO Finasteride 5 MG DAILY 03/09 1000 AC 03/10 PO 0827 Heparin Sodium 5,000 UNIT Q8 03/09 2200 DC (Porcine) SC Heparin Sodium 25,000 UNIT Q24H 03/09 1545 AC 03/09 (Porcine) IV 1548 Sodium Chloride 500 ML Heparin Sodium 25,000 UNIT Q24H 03/08 0230 DC 03/09 (Porcine) IV 0556 Sodium Chloride 500 ML Labetalol HCl 200 MG BID 03/08 1422 AC 03/10 PO 0826 Morphine Sulfate 15 MG Q4P PRN 03/09 0800 AC 03/10 PO 0828 Nitroglycerin 0.5 GM Q6 03/10 1200 AC 03/10 TOP 1133 Potassium Chloride 40 MEQ ONCE ONE 03/09 1415 DC 03/09 PO 03/09 1416 1540 Sodium Chloride 1,000 ML Q10H 03/08 0445 DC 03/08 IV 1320 Last 24 Hrs of Lab/Dany Results Last 24 Hrs of Labs/Mics: Laboratory Tests 03/10/17 1015: APTT 35 03/10/17 0620: Anion Gap 11, Estimated GFR > 60, BUN/Creatinine Ratio 31.7 H, CBC w Diff NO MAN DIFF REQ, RBC 4.30 L, MCV 89.5, MCH 30.2, MCHC 33.7, RDW 14.7 H, MPV 10.1, Gran % 68.3, Lymphocytes % 20.9, Monocytes % 9.7 H, Eosinophils % 0.6, Basophils % 0.5, Absolute Granulocytes 5.5, Absolute Lymphocytes 1.7, Absolute Monocytes 0.8 H, Absolute Eosinophils 0, Absolute Basophils 0 03/09/17 2358: Troponin I 1.24 *H, APTT 37 03/09/17 1542: Troponin I 1.57 *H 03/09/17 1230: APTT 48 H Microbiology 03/10 06 URINE ROUT: Urine Culture - COLB 03/09 1312 URINE ROUT: Urine Culture - CAN Cancelled: Cancelled via OE: Error Assessment/Plan Assessment: Mr Muñiz is a 72-year-old male with a PMH significant for HTN, AAA, prostate cancer with metastasis to bone, questionable diagnosis of hepatitis was brought into the emergency department complaining of right lower pain, emesis and possible syncope. Problem list Multiple syncopal episodes Hypertensive urgency on admission Portal venous thrombus-ruled out Right mid ureter obstructing calculus with hydronephrosis S/P right sided ureteroscopy with laser lithotripsy History of prostate cancer with bone metastases Plan Multiple syncopal episodes * Continue to monitor patient on telemetry floor. No chest pain or lightheadedness * Overnight patient had diffuse T-wave inversion and new Q waves and on and off chest pain. He was seen by training developer today who suggested to do a repeat EKG, chest x-ray PA and lateral view, nitroglycerin half inch every 6, aspirin 325, atorvastatin 80 mg. Plan for cardiac cath on Sunday. Continue heparin * Echocardiogram done yesterday showed an EF of 40-45% with Hamilton hypokinetic with Thinned/scarred septum. * We will update the family today. * Echocardiogram is pending. * Cardiology follow-up appreciated. Hypertensive urgency on admission * Blood pressure on admission was elevated 204/111 that dropped significantly to 133/97. * Continue with antihypertensives Portal venous thrombus-ruled out * Abdominal ultrasound did yesterday rule out any underlying venous thrombosis. We'll discontinue IV heparin and start the patient on prophylaxis subcutaneous heparin Right mid ureter obstructing calculus with hydronephrosis S/P right sided ureteroscopy with laser lithotripsy * We'll continue with bladder irrigation. History of prostate cancer with bone metastases * We will try to obtain records from the [facility] . History of a abdominal aortic aneurysm It appears the patient was aware that he had an aneurysm. Will compare imaging studies from previous hospitalizations. DVT PPX: Heparin Sub Q Code: FC for now to be confirmed when patient is more alert and oriented. Plan-cardiology follow-up. Update the family. Problem List: 1. Syncope 2. AAA (abdominal aortic aneurysm) 3. Renal colic on right side Pain Ratin Pain Location: none Pain Goal: Remain pain free Pain Plan: tylenol Tomorrow's Labs & Rationales: cbc,bep Paulie MOFFETT,Piter 03/10/17 1031: Attending MD Review Statement Attending Statement Attending MD Statement: examined this patient, discuss w/resident/PA/AGENCY SERVICE REPRESENTATIVE, agreed w/resident/PA/AGENCY SERVICE REPRESENTATIVE, reviewed EMR data (avail), discussed with nursing, discussed with case mgmt, amended to note Attending Assessment/Plan: Patient seen and examined. Yesterday he was noted to have T-wave inversions on his EKG. He remained asymptomatic with no complaints of chest pain or shortness of breath. Cardiac enzymes were drawn. An add on to a.m. labs that showed his troponin is to be above 2. Repeat labs showed downward trend. He remains asymptomatic all through. This was discussed with the cardiology service yesterday. Today he remains asymptomatic. Denies chest pain. Denies shortness of breath. Denies palpitations. He is alert oriented 3. Qiu catheter remains in place draining bloody urine. His hemoglobin level remains stable. On examination he has no jugular venous distention. Heart sounds are regular. Lungs are clear bilaterally. Abdomen is soft and nontender. He has no peripheral edema. Problems: 1. Type II myocardial infarction. 2. Syncope 3. Cardiomyopathy; likely ischemic with systolic dysfunction and apical hypokinesis. Query chronicity 4. Bilateral hydronephrosis. Status post lithotripsy and right renal stent placement postoperative day 2 5. Metastatic prostate cancer 6. Chronic pain syndrome 7. Leukocytosis; resolved 8. Thrombocytosis. Plan: -Begin antiplatelet therapy with aspirin. Lipid-lowering therapy with atorvastatin 80 mg daily. Continue to evaluation with heparin IV for total of 48 hours. Continue labetalol. -Repeat echocardiogram tomorrow. -Given his hemodynamic stability, asymptomatic status, and improving troponin level we will continue with conservative medical management for now and reevaluate need for cardiac catheterization particularly in light of his metastatic prostate cancer. -Thrombocytosis is likely chronic and related to his malignancy. Still awaiting records from the [facility].
[2017-03-10 08:44] LABS: ABSOLUTE BASOPHIL COUNT 0 /CUMM (0.0-0.2); ABSOLUTE EOSINOPHIL COUNT 0 /CUMM (0.0-0.7); ABSOLUTE GRANULOCYTE CT 5.5 /CUMM (1.4-6.5); ABSOLUTE LYMPH COUNT 1.7 /CUMM (1.2-3.4); ABSOLUTE MONOCYTE COUNT 0.8 /CUMM (0.10-0.60); BASOPHIL % 0.5 % (0.0-2.0); EOSINOPHIL % 0.6 % (0-5); GRANULOCYTE % 68.3 % (42.2-75.2); HEMATOCRIT 38.5 % (42-52); MEAN CORPUSCULAR HGB 30.2 PG (27.0-31.0); MEAN CORPUSCULAR HGB CONC 33.7 G/DL (33.0-37.0); MEAN CORPUSCULAR VOLUME 89.5 FL (80.0-94.0); MEAN PLATELET VOLUME 10.1 FL (7.4-10.4); PLATELET COUNT 84 /CUMM (130-400); RBC DISTRIBUTION WIDTH 14.7 % (11.5-14.5)
--- NOTE | 2017-03-10 10:23 | PN- Cardiology ---
Subjective Subjective: * No active chest discomfort, lightheadedness of palpitations. * Persistent T wave inversions * cardiac enzymes are trending down Objective Vital Signs and I&Os Vital Signs Date Time Temp Pulse Resp B/P B/P Pulse O2 O2 Flow FiO2 Mean Ox Delivery Rate 03/10 0826 78 102/64 03/10 0726 97.6 78 18 102/64 94 Room Air 03/09 2248 97.8 81 18 112/64 94 03/09 2046 83 100/64 03/09 1508 97.6 83 18 100/64 94 Room Air Intake & Output 03/10 1600 03/10 0800 03/10 0000 03/09 1600 03/09 0800 03/09 0000 Intake Total 204.8 560 1370 520 220 Output Total 350 400 750 329 8086 Balance -145.2 160 490 70 -1030 Intake, IV 164.8 690 520 220 Intake, Oral 40 560 680 Number 0 Bowel Movements Output, Urine 350 400 780 722 1993 Patient 142 lb Weight Physical Exam: General: WD/WN male in NAD; alert and oriented x 3 Neck: no JVD Heart: irregular with 3/6 systolic murmur Lungs: clear bilaterally Extremities; no edema Assessment/Plan Assessment/Plan * Obtain a PA and Lateral chest X-ray * Obtain a 12 lead ECG today. * This patient may well have experienced multiple episodes of syncope from a malignant ventricular dysrhythmia related to an acute WI accompanied by low EF. He continues to demonstrate an ECG consistent with diffuse ischemia and a cardiac catheterization is recommended on Sunday. Keep NPO except for medications on Sunday evening. * We will treat this patient medically for now unless he has recurrent chest pain or worsening cardiac enzymes. Begin NTG paste 1/2 inch Q6 hrs. Begin aspirin 325mg daily and IV heparin. Continue Labetolol and begin Atorvastatin at 80mg daily. * Obtain records from the [place]. Continue telemetry? Yes
[2017-03-10 11:37] LABS: PTT 35 SEC (25-37)
[2017-03-10 14:15] VITALS: BP 100/58
--- NOTE | 2017-03-10 16:57 | RADIOLOGY REPORT ---
EXAMINATION: CR CHEST CLINICAL INFORMATION: Chest pain. Syncope. COMPARISON: CT scan of the abdomen and pelvis dated 03/08/2017. TECHNIQUE: 2 views of the chest were obtained. FINDINGS: The cardiac silhouette is within normal limits in size. Ectasia, tortuosity and calcification of the aorta are seen. Lungs bilaterally are symmetrically mildly hyperinflated with coarsening of the bronchovascular lung markings and slight thickening of the central airways, suggesting obstructive lung disease. No focal consolidation, effusion or pneumothorax is seen. There is some increased density seen associated with the anterior left first rib and at the posterior left third and fourth ribs and some of the bilateral lower ribs, suspicious for metastatic disease in this patient with history of prostate cancer. IMPRESSION: 1. Hyperinflated lungs, suspicious for obstructive lung disease. Clinical correlation requested. 2. Sclerotic densities are seen in the ribs bilaterally, raising the suspicion of metastatic disease. Correlation with CT scan of the chest or bone scan is recommended.
[2017-03-10 21:54] LABS: PTT 59 SEC (25-37)
[2017-03-10 23:13] VITALS: BP 126/82
[2017-03-11 00:35] VITALS: BP 136/82
[2017-03-11 04:42] LABS: ABSOLUTE BASOPHIL COUNT 0 /CUMM (0.0-0.2); ABSOLUTE EOSINOPHIL COUNT 0.1 /CUMM (0.0-0.7); ABSOLUTE GRANULOCYTE CT 5.4 /CUMM (1.4-6.5); ABSOLUTE MONOCYTE COUNT 0.8 /CUMM (0.10-0.60); BASOPHIL % 0.4 % (0.0-2.0); EOSINOPHIL % 0.9 % (0-5); HEMATOCRIT 36.8 % (42-52); MEAN CORPUSCULAR HGB 29.5 PG (27.0-31.0); MEAN CORPUSCULAR HGB CONC 32.7 G/DL (33.0-37.0); MEAN CORPUSCULAR VOLUME 90.3 FL (80.0-94.0); MEAN PLATELET VOLUME 9.6 FL (7.4-10.4); PLATELET COUNT 85 /CUMM (130-400); RED BLOOD CELL CT 4.07 /CUMM (4.70-6.10); WHITE BLOOD CELL COUNT 7.3 /CUMM (4.8-10.8)
[2017-03-11 05:08] LABS: PTT 105 SEC (25-37)
[2017-03-11 06:34] VITALS: BP 124/78
--- NOTE | 2017-03-11 10:28 | PN- Cardiology ---
Subjective Subjective: * No active chest discomfort, lightheadedness or palpitations. * Persistent T wave inversions with bigeminy * cardiac enzymes are trending down * decreased EF on echo Objective Vital Signs and I&Os Vital Signs Date Time Temp Pulse Resp B/P B/P Pulse O2 O2 Flow FiO2 Mean Ox Delivery Rate 03/11 819 67 124/78 03/11 0634 96.9 67 18 124/78 97 Room Air 03/11 0035 136/82 / 2313 97.9 78 22 126/82 95 Room Air 03/10 2238 78 126/82 03/10 1415 98.0 75 18 100/58 97 Room Air Intake & Output 03/11 1600 03/11 0800 03/11 0000 03/10 1600 03/10 0800 03/10 0000 Intake Total 627.2 197.4 630 204.8 560 Output Total 600 300 350 400 Balance 27.2 197.4 330 -145.2 160 Intake, IV 387.2 77.4 180 164.8 Intake, Oral 240 120 450 40 560 Output, Urine 600 300 350 400 Patient 142 lb Weight Physical Exam: General: WD/WN male in NAD; alert and oriented x 3 Neck: no JVD Heart: irregular with 3/6 systolic murmur Lungs: clear bilaterally Extremities; no edema Assessment/Plan Assessment/Plan * No CHF on chest X-ray but evidence of COPD and possible bone metastases. * bigeminy on ECG * This patient may well have experienced multiple episodes of syncope from a malignant ventricular dysrhythmia related to an acute DE accompanied by low EF. He continues to demonstrate an ECG consistent with diffuse ischemia and a cardiac catheterization is recommended on Sunday. Dr Morejon will make the decision on this Sunday. Keep NPO except for medications on Sunday evening due to the possibility of this procedure. * We will treat this patient medically for now unless he has recurrent chest pain or worsening cardiac enzymes. Begin NTG paste 1/2 inch Q6 hrs. Begin aspirin 325mg daily and IV heparin. Continue Labetolol and begin Atorvastatin at 80mg daily. * [facility] Continue telemetry? Yes
[2017-03-11 13:06] LABS: PTT > 120 SEC (25-37)
[2017-03-11 14:56] VITALS: BP 108/54
--- NOTE | 2017-03-11 15:28 | PN- Att Addend ---
Attending Addendum Attending Brief Note Patient seen and examined. Resting comfortably not in acute distress. No issues overnight. 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 He remains in normal sinus rhythm. Complained of mild abdominal discomfort this morning that resolved after moving his bowels. Vital Signs Date Time Temp Pulse Resp B/P B/P Pulse O2 O2 Flow FiO2 Mean Ox Delivery Rate 03/11 1456 97.7 82 20 108/54 95 Room Air 03/11 0820 67 124/78 03/11 0634 96.9 67 18 124/78 97 Room Air 03/11 0035 136/82 02 2313 97.9 78 22 126/82 95 Room Air 03/10 2238 78 126/82 General appearance: Not in acute distress Heart: S1-S2 regular Lungs: Clear bilaterally Abdomen: Soft and nontender. Qiu catheter in place. Hematuria appears to be clearing up slowly. Extremities: No pedal edema Laboratory Tests 03/11/17 1145: APTT > 120 *H 03/11/17 0420: Anion Gap 13, Estimated GFR > 60, BUN/Creatinine Ratio 30.0 H, APTT 105 *H, CBC w Diff NO MAN DIFF REQ, RBC 4.07 L, MCV 90.3, MCH 29.5, MCHC 32.7 L, RDW 15.0 H, MPV 9.6, Gran % 74.0, Lymphocytes % 13.9 L, Monocytes % 10.8 H, Eosinophils % 0.9, Basophils % 0.4, Absolute Granulocytes 5.4, Absolute Lymphocytes 1.0 L, Absolute Monocytes 0.8 H, Absolute Eosinophils 0.1, Absolute Basophils 0 03/10/17 2100: Troponin I Cancelled 03/10/172024: APTT 59 H Problems: 1. Type II myocardial infarction. 2. Syncope 3. Cardiomyopathy; likely ischemic with systolic dysfunction and apical hypokinesis. Query chronicity 4. Bilateral hydronephrosis. Status post lithotripsy and right renal stent placement postoperative day 2 5. Metastatic prostate cancer 6. Chronic pain syndrome 7. Leukocytosis; resolved 8. Thrombocytosis. Plan: -Discontinue heparin infusion. Continue aspirin. Continue beta tamika therapy and statin therapy. Continue Nitropaste. -N.p.o. past midnight. Follow-up with cardiology service in the a.m. regarding need for cardiac catheterization. -Continue manual bladder irrigation. Follow-up with the neurology service. -Please confirm patient's home dose of morphine and adjust medications accordingly. -Continue bowel regimen to prevent opioid-induced constipation. Please ensure medications are administered daily rather than as needed.
[2017-03-11] MEDS ORDERED: HEPARIN-1/25000 UNI1 IV (16:32)
[2017-03-11] MEDS ORDERED: ASPIRIN325 M2 PO (16:33)
[2017-03-11] MEDS ORDERED: NITRO-BID1 GM TOP (16:33)
[2017-03-11 17:57] LABS: PTT 48 SEC (25-37)
[2017-03-11 22:06] VITALS: BP 120/70
[2017-03-12 01:55] LABS: PTT 49 SEC (25-37)
[2017-03-12 06:29] VITALS: BP 120/56
--- NOTE | 2017-03-12 07:55 | PN- Housestaff ---
Chasity Orozco 03/12/17 0754: Subjective Follow-up For: 1.Multiple syncopal episodes from malignant ventricular dysrhythmia related to an acute TX accompanied by low EF. 2.Right mid ureter obstructing calculus with hydronephrosis S/P right sided ureteroscopy with laser lithotripsy. Tele-Events Since Last Visit: Normal sinus rhythm, no overnight events on telemetry floor Subjective: Patient is seen and examined today seems better vital stable, denies any abdominal discomfort and nausea vomiting. Denies any chest discomfort or breathing palpitations. However patient continues to have hematuria Patient was reevaluated by cardiology today and recommended to hold off cardiac catheterization for now in the setting of persistent hematuria. Review of Systems Constitutional: Denies: diaphoresis, fever, malaise. EENTM: Denies: blurred vision, double vision, visual changes. Cardiovascular: Denies: chest pain, edema, orthopena. Respiratory: Denies: cough, hemoptysis, orthopnea. Gastrointestinal: Denies: abdominal pain, bloating, diarrhea. Genitourinary: Denies: dysuria, frequency, hematuria. Musculoskeletal: Denies: back pain, gout, joint pain. Objective Last 24 Hrs of Vital Signs/I&O Vital Signs Date Time Temp Pulse Resp B/P B/P Pulse O2 O2 Flow FiO2 Mean Ox Delivery Rate 03/12 0751 Room Air 03/12 0742 76 170/90 03/12 0629 98.6 82 12 120/56 96 Room Air 03/11 2206 99.0 87 20 120/70 95 03/11 2141 98.4 72 18 130/66 03/11 1456 97.7 82 20 108/54 95 Room Air Intake & Output 03/12 1600 03/12 0800 02 0000 Intake Total 150 220 Output Total 400 80 Balance -250 140 Intake, IV 150 40 Intake, Oral 0 150 Intake, Other 30 Output, Urine 400 80 Physical Exam General Appearance: Alert, Oriented X3 Skin: No Rashes, No Breakdown Skin Temp/Moisture Exam: Warm/Dry Cardiovascular: Regular Rate, Normal S1, Normal S2 Lungs: Clear to Auscultation, Normal Air Movement Abdomen: Normal Bowel Sounds, Soft, No Tenderness Neurological: Normal Gait, Normal Speech Extremities: No Clubbing, No Cyanosis Current Medications: Current Medications Sig/Fareed Start time Last Medication Dose Route Stop Time Status Admin Acetaminophen 1,000 MG Q6P PRN 03/08 0815 AC 03/11 N/A 1 UNIT IV 0407 Aspirin 325 MG DAILY 03/10 1030 AC 03/12 PO 0739 Atorvastatin Calcium 80 MG 1700 03/10 1700 AC 03/11 PO 1854 Docusate Sodium 100 MG DAILY 03/11 0400 AC 03/12 PO 0741 Finasteride 5 MG DAILY 03/09 1000 AC 03/12 PO 0741 Heparin Sodium 5,000 UNIT .STK-MED ONE 03/12 0343 DC (Porcine) IV 03/12 0344 Heparin Sodium 1,932 UNIT BOLUS ONE 03/12 0220 DC 03/12 (Porcine) IV 03/12 0221 0230 Heparin Sodium 100 UNIT .STK-MED ONE 03/11 1906 DC (Porcine) IV 03/11 1907 Heparin Sodium 1,932 UNIT ONE ONE 03/11 1900 DC 03/11 (Porcine) IV 03/11 1901 2029 Heparin Sodium 25,000 UNIT Q24H 03/09 1545 AC 03/11 (Porcine) IV 1201 Sodium Chloride 500 ML Labetalol HCl 200 MG BID 03/08 1422 AC 03/12 PO 0742 Morphine Sulfate 2 MG ONCE ONE 03/11 2345 DC 03/11 IV 03/11 2346 0016 Morphine Sulfate 20 MG Q4P PRN 03/11 1030 AC 03/12 PO 1118 Nitroglycerin 0.5 GM Q6 03/10 1200 AC 03/12 TOP 1113 Senna 187 MG AT BEDTIME 03/11 0400 AC 03/11 PO 2142 Last 24 Hrs of Lab/Dany Results Last 24 Hrs of Labs/Mics: Laboratory Tests 03/12/17 0718: Anion Gap 10, Estimated GFR > 60, BUN/Creatinine Ratio 26.7 H, CBC w Diff NO MAN DIFF REQ, RBC 3.96 L, MCV 89.8, MCH 30.3, MCHC 33.7, RDW 15.0 H, MPV 10.3, Gran % 76.5 H, Lymphocytes % 11.8 L, Monocytes % 10.6 H, Eosinophils % 0.9, Basophils % 0.2, Absolute Granulocytes 5.9, Absolute Lymphocytes 0.9 L, Absolute Monocytes 0.8 H, Absolute Eosinophils 0.1, Absolute Basophils 0 03/12/17 0105: APTT 49 H 03/11/17 1750: APTT Cancelled 03/11/17 1726: APTT 48 H Assessment/Plan Assessment: Mr Muñiz is a 72-year-old male with a PMH significant for HTN, AAA, prostate cancer with metastasis to bone, questionable diagnosis of hepatitis was brought into the emergency department complaining of right lower pain, emesis and possible syncope. Problem list Multiple syncopal episodes from malignant ventricular dysrhythmia related to an acute TX accompanied by low EF Hypertensive urgency on admission Portal venous thrombus-ruled out Right mid ureter obstructing calculus with hydronephrosis S/P right sided ureteroscopy with laser lithotripsy History of prostate cancer with bone metastases Plan Multiple syncopal episodes from malignant ventricular dysrhythmia related to an acute TX accompanied by low EF * Continue to monitor patient on telemetry floor. No chest pain or lightheadedness. * Echocardiogram done yesterday showed an EF of 40-45% with [place] hypokinetic with Thinned/scarred septum. * Persistent diffuse T wave inversions in the anterior leads * Patient was reevaluated by cardiology today and recommended to hold off cardiac catheterization for now in the setting of persistent hematuria and history of advanced prostate cancer . * Patient might need dual antiplatelet therapy, if coronary stent has to be placed after cardiac cath that would further exacerbate his hematuria. * Will repeat EKG with troponin and echocardiogram. * Depending on the results we'll consider stopping the heparin * Cardiology follow-up appreciated. Hypertensive urgency on admission * Blood pressure on admission was elevated 204/111 that dropped significantly to 133/97. * Continue with antihypertensives Portal venous thrombus-ruled out * Abdominal ultrasound did yesterday rule out any underlying venous thrombosis. We'll discontinue IV heparin and start the patient on prophylaxis subcutaneous heparin Right mid ureter obstructing calculus with hydronephrosis S/P right sided ureteroscopy with laser lithotripsy * Patient continues to have persistent hematuria , we will ask Dr. Eagle to reevaluate the patient today, * We'll continue with bladder irrigation. History of prostate cancer with bone metastases * We will try to obtain records from the [facility] . History of a abdominal aortic aneurysm It appears the patient was aware that he had an aneurysm. Will compare imaging studies from previous hospitalizations. DVT PPX: Heparin Sub Q Code: FC for now to be confirmed when patient is more alert and oriented. Problem List: 1. Syncope Pain Ratin Pain Location: PRN abdomen. Pain Goal: Remain pain free Pain Plan: PRN tylenol Tomorrow's Labs & Rationales: CBC and BEP Paulie MOFFETTTreylogan 03/12/17 1154: Attending MD Review Statement Attending Statement Attending MD Statement: examined this patient, discuss w/resident/PA/BALANCE WHEEL ARM BURNISHER, agreed w/resident/PA/BALANCE WHEEL ARM BURNISHER, reviewed EMR data (avail), discussed with nursing, discussed with case mgmt, amended to note Attending Assessment/Plan: Patient seen and examined. Resting comfortably not in any acute distress. No issues overnight. No events on telemetry monitoring. He is alert and oriented shortness of breath or palpitations. He describes the cardiology service. The patient is to undergo cardiac catheterization will likely require stent placement of obstructive coronary disease is found. Wall antiplatelet therapy will likely exacerbate his ongoing hematuria. Patient has also stated a preference for medical therapy if possible. In view of his asymptomatic and hemodynamically stable status patient will be managed conservatively for now with current therapy. We will follow-up results of repeat echocardiogram and obtain an EKG today. We will discontinue heparin infusion. Recommend follow-up with the urology service regarding management of his ongoing hematuria. Hopefully this will start to improve now that his heparin infusion has been stopped.
[2017-03-12 08:12] LABS: ABSOLUTE BASOPHIL COUNT 0 /CUMM (0.0-0.2); ABSOLUTE EOSINOPHIL COUNT 0.1 /CUMM (0.0-0.7); ABSOLUTE GRANULOCYTE CT 5.9 /CUMM (1.4-6.5); ABSOLUTE LYMPH COUNT 0.9 /CUMM (1.2-3.4); ABSOLUTE MONOCYTE COUNT 0.8 /CUMM (0.10-0.60); BASOPHIL % 0.2 % (0.0-2.0); EOSINOPHIL % 0.9 % (0-5); GRANULOCYTE % 76.5 % (42.2-75.2); HEMATOCRIT 35.5 % (42-52); MEAN CORPUSCULAR HGB 30.3 PG (27.0-31.0); MEAN CORPUSCULAR HGB CONC 33.7 G/DL (33.0-37.0); MEAN CORPUSCULAR VOLUME 89.8 FL (80.0-94.0); MEAN PLATELET VOLUME 10.3 FL (7.4-10.4); PLATELET COUNT 81 /CUMM (130-400); RED BLOOD CELL CT 3.96 /CUMM (4.70-6.10); WHITE BLOOD CELL COUNT 7.7 /CUMM (4.8-10.8)
--- NOTE | 2017-03-12 11:03 | PN- Cardiology ---
Subjective Subjective: The patient reports that he is feeling well from a cardiac standpoint. No chest pain. No shortness of breath. No palpitations. No diaphoresis. He is continuing to have gross hematuria. Objective Vital Signs and I&Os Vital Signs Date Time Temp Pulse Resp B/P B/P Pulse O2 O2 Flow FiO2 Mean Ox Delivery Rate 03/12 0751 Room Air 03/12 0742 76 170/90 03/12 0629 98.6 82 12 120/56 96 Room Air 03/11 2206 99.0 87 20 120/70 95 03/11 2141 98.4 72 18 130/66 03/11 1456 97.7 82 20 108/54 95 Room Air Intake & Output 03/12 1600 03/12 0803/12 0000 03/11 1600 03/11 0803/11 0000 Intake Total 150 220 522 627.2 197.4 Output Total 400 80 400 600 Balance -250 140 122 27.2 197.4 Intake, IV 150 40 162 387.2 77.4 Intake, Oral 0 150 360 240 120 Intake, Other 30 Number 1 Bowel Movements Output, Urine 400 80 400 600 Physical Exam: Gen: NAD HEENT: normal Lungs: clear to auscultation, normal resp. effort Heart: S1, S2, no murmurs Abdomen: Soft, nontender, no masses Extremities: No clubbing, cyanosis, or edema. Neuro: Alert and oriented x 3, cranial nerves intact Current Medications: Current Medications Sig/Fareed Start time Last Medication Dose Route Stop Time Status Admin Acetaminophen 1,000 MG Q6P PRN 03/08 0815 AC 03/11 N/A 1 UNIT IV 0407 Aspirin 325 MG DAILY 03/10 1030 AC 03/12 PO 0739 Atorvastatin Calcium 80 MG 1700 03/10 1700 AC 03/11 PO 1854 Docusate Sodium 100 MG DAILY 03/11 0400 AC 03/12 PO 0741 Finasteride 5 MG DAILY 03/09 1000 AC 03/12 PO 0741 Heparin Sodium 1,932 UNIT BOLUS ONE 03/12 022 DC 03/12 (Porcine) IV 03/12 022 0230 Heparin Sodium 100 UNIT .STK-MED ONE 03/11 1905 DC (Porcine) IV 03/11 190 Heparin Sodium 1,932 UNIT ONE ONE 03/11 190 DC 03/11 (Porcine) IV 03/11 Heparin Sodium 25,000 UNIT Q24H 03/09 1545 AC 03/11 (Porcine) IV 1201 Sodium Chloride 500 ML Labetalol HCl 200 MG BID 03/08 1422 AC 03/12 PO 0742 Morphine Sulfate 2 MG ONCE ONE 03/11 2345 DC 03/11 IV 03/11 2346 0016 Morphine Sulfate 20 MG Q4P PRN 03/11 1030 AC 03/12 PO 0427 Nitroglycerin 0.5 GM Q6 03/10 1200 AC 03/12 TOP 0659 Senna 187 MG AT BEDTIME 03/11 0400 03/11 PO 2142 Results Last 48 Hrs of Labs/Mics: Laboratory Tests 03/12/17 0718: Anion Gap 10, Estimated GFR > 60, BUN/Creatinine Ratio 26.7 H, CBC w Diff NO MAN DIFF REQ, RBC 3.96 L, MCV 89.8, MCH 30.3, MCHC 33.7, RDW 15.0 H, MPV 10.3, Gran % 76.5 H, Lymphocytes % 11.8 L, Monocytes % 10.6 H, Eosinophils % 0.9, Basophils % 0.2, Absolute Granulocytes 5.9, Absolute Lymphocytes 0.9 L, Absolute Monocytes 0.8 H, Absolute Eosinophils 0.1, Absolute Basophils 0 03/12/17 0105: APTT 49 H 03/11/17 1750: APTT Cancelled 03/11/17 1726: APTT 48 H 03/11/17 1145: APTT > 120 *H 03/11/17 0420: Anion Gap 13, Estimated GFR > 60, BUN/Creatinine Ratio 30.0 H, APTT 105 *H, CBC w Diff NO MAN DIFF REQ, RBC 4.07 L, MCV 90.3, MCH 29.5, MCHC 32.7 L, RDW 15.0 H, MPV 9.6, Gran % 74.0, Lymphocytes % 13.9 L, Monocytes % 10.8 H, Eosinophils % 0.9, Basophils % 0.4, Absolute Granulocytes 5.4, Absolute Lymphocytes 1.0 L, Absolute Monocytes 0.8 H, Absolute Eosinophils 0.1, Absolute Basophils 0 03/10/17 2100: Troponin I Cancelled 03/10/172024: APTT 59 H Assessment/Plan Assessment/Plan Assessment: 1. Periprocedure myocardial infarction, likely type II SD in the setting of urology procedure. No chest pain or other cardiac symptoms reported. 2. Prostate cancer with bone metastases 3. Gross hematuria 4. Infrarenal AAA 5. Mildly reduced left ventricular ejection fraction with hypokinetic apex seen on echocardiogram Recommendations: * I discussed the options for cardiac catheterization versus additional medical management with the patient. Given his metastatic prostate cancer, his ongoing hematuria, and considering that the myocardial infarction occurred in the setting of a urology procedure with no definite cardiac symptoms, it is reasonable to hold off on cardiac catheterization for now, and pursue initial medical management. The patient's preference is for medical management if possible, and he agrees with this plan * If a coronary stent were placed, then dual antiplatelet therapy would be required which would exacerbating his hematuria * Check repeat echocardiogram * Repeat EKG today * Check repeat troponin * If he develops chest discomfort or other cardiac symptoms, then cardiac catheterization would continue to be an option Continue telemetry? Yes
[2017-03-12 13:58] VITALS: BP 102/48
--- NOTE | 2017-03-12 15:12 | PN- Urology ---
Surgical Brief Attending Note Brief Attending Note: pt comfotable: hematuria as previously indicated is due to stent while pt on anti-coagulation. vss afebrile tmax 99.0 currently at 97.8F. abd soft. recommend:repeat urine cx, and renal US.
[2017-03-12 22:24] VITALS: BP 112/58
--- NOTE | 2017-03-13 00:45 | ULTRASOUND REPORT ---
EXAMINATION: US RETROPERITONEAL COMPLETE (RENAL) CLINICAL INFORMATION: Hematuria.. COMPARISON: CT scan abdomen pelvis March 08, 2017. Ultrasound of abdomen March 08, 2017. TECHNIQUE: Real-time imaging of the kidneys and bladder. Color Doppler exam used. FINDINGS: RIGHT KIDNEY: 12.1 x 5.8 x 6.2 cm (SAG x AP x TRV). There is moderate hydronephrosis of the right kidney. This is similar to the CAT scan March 08, 2017. There is no calculi. There are cortical cysts. These are anechoic. In the midpole there is a 1.8 cm cyst. The lower pole there is a 2.6 cm cyst. LEFT KIDNEY: 12.4 x 5.5 x 5.5 cm (SAG x AP x TRV). There is no hydronephrosis. The distended renal pelvis and calyces seen on the CAT scan March 27, 2017 not seen on this exam. There are nonobstructive calculi. The lower pole there is a 6 mm stone and an adjacent 7 mm stone. These are unchanged since CAT scan study. There are anechoic cysts. Lower pole there is a 2.7 cm cyst, 5.8 cm cyst and 2.1 cm cyst. BLADDER: Qiu catheter in place. Bladder is empty. Ureteral jets are not seen. IMPRESSION: 1. Resolved hydronephrosis of the right kidney since prior CAT scan March 08, 2017. No right renal stones seen. Right renal cyst. 2. No change to small nonobstructive calculi in lower pole left kidney. No hydronephrosis of left kidney. Stable lower pole renal cyst..
[2017-03-13 07:13] VITALS: BP 128/78
[2017-03-13 07:51] LABS: ABSOLUTE BASOPHIL COUNT 0 /CUMM (0.0-0.2); ABSOLUTE EOSINOPHIL COUNT 0.1 /CUMM (0.0-0.7); ABSOLUTE GRANULOCYTE CT 4.2 /CUMM (1.4-6.5); ABSOLUTE LYMPH COUNT 1.1 /CUMM (1.2-3.4); ABSOLUTE MONOCYTE COUNT 0.6 /CUMM (0.10-0.60); BASOPHIL % 0.8 % (0.0-2.0); EOSINOPHIL % 2.1 % (0-5); GRANULOCYTE % 69.3 % (42.2-75.2); MEAN CORPUSCULAR HGB 30.3 PG (27.0-31.0); MEAN CORPUSCULAR HGB CONC 33.7 G/DL (33.0-37.0); MEAN CORPUSCULAR VOLUME 89.9 FL (80.0-94.0); MEAN PLATELET VOLUME 11.2 FL (7.4-10.4); PLATELET COUNT 89 /CUMM (130-400); RBC DISTRIBUTION WIDTH 14.9 % (11.5-14.5); RED BLOOD CELL CT 3.89 /CUMM (4.70-6.10)
--- NOTE | 2017-03-13 08:05 | PN- Housestaff ---
Chasity Orozco 03/13/17 0805: Subjective Follow-up For: 1.Multiple syncopal episodes from malignant ventricular dysrhythmia related to an acute DC accompanied by low EF. 2.Right mid ureter obstructing calculus with hydronephrosis S/P right sided ureteroscopy with laser lithotripsy. Tele-Events Since Last Visit: Normal sinus rhythm, no overnight events on telemetry floor Subjective: Patient is seen and examined today seems yoni denies any abdominal discomfort and nausea vomiting. vital stable, Denies any chest discomfort or breathing palpitations. However patient continues to have gross hematuria. Patient was reevaluated by urology yesterday and recommended renal ultrasound and repeat urine cultures. Review of Systems Constitutional: Denies: chills, diaphoresis, fever. EENTM: Denies: blurred vision, double vision, visual changes. Cardiovascular: Denies: chest pain, edema, orthopena. Respiratory: Denies: cough, hemoptysis. Gastrointestinal: Denies: abdominal pain, bloating, constipation. Genitourinary: Denies: discharge, dysuria. Musculoskeletal: Denies: back pain, gout, joint pain. Skin: Denies: cysts, change in skin color. Objective Last 24 Hrs of Vital Signs/I&O Vital Signs Date Time Temp Pulse Resp B/P B/P Pulse O2 O2 Flow FiO2 Mean Ox Delivery Rate 03/13 0816 69 128/78 / 0713 98.0 69 12 128/78 98 Room Air / 0000 Room Air 03/12 2224 98.5 65 16 112/58 94 / 2144 79 102/58 / 1600 Room Air 03/12 1358 98.1 84 20 102/48 97 Room Air Intake & Output 03/13 1600 03/13 0800 02/ 0000 Intake Total 240 480 Output Total 1350 600 Balance -1110 -120 Intake, Oral 240 480 Output, Urine 1350 600 Physical Exam General Appearance: Alert, Oriented X3 Skin: No Rashes, No Breakdown Cardiovascular: Regular Rate, Normal S1, Normal S2 Lungs: Clear to Auscultation, Normal Air Movement Abdomen: Normal Bowel Sounds, Soft Current Medications: Current Medications Sig/Fareed Start time Last Medication Dose Route Stop Time Status Admin Acetaminophen 1,000 MG Q6P PRN 03/08 0815 AC 03/11 N/A 1 UNIT IV 0407 Aspirin 81 MG DAILY 03/14 1000 UNVr PO Aspirin 325 MG DAILY 03/10 1030 DC 03/13 PO 0816 Atorvastatin Calcium 80 MG 1700 03/10 1700 AC 03/12 PO 1738 Docusate Sodium 100 MG DAILY 03/11 0400 AC 03/13 PO 0816 Finasteride 5 MG DAILY 03/09 1000 AC 03/13 PO 0816 Heparin Sodium 25,000 UNIT Q24H 03/09 1545 DC 03/11 (Porcine) IV 1201 Sodium Chloride 500 ML Labetalol HCl 200 MG BID 03/08 1422 AC 03/13 PO 0816 Morphine Sulfate 20 MG Q4P PRN 03/11 1030 AC 03/13 PO 1030 Nitroglycerin 0.5 GM Q6 03/10 1200 DC 03/13 TOP 1150 Senna 187 MG AT BEDTIME 03/11 0400 AC 03/12 PO 2144 Last 24 Hrs of Lab/Dany Results Last 24 Hrs of Labs/Mics: Laboratory Tests 03/13/17 0900: Anion Gap 13, Estimated GFR > 60, BUN/Creatinine Ratio 31.3 H, Troponin I Pending 03/13/17 0700: CBC w Diff NO MAN DIFF REQ, RBC 3.89 L, MCV 89.9, MCH 30.3, MCHC 33.7, RDW 14.9 H, MPV 11.2 H, Gran % 69.3, Lymphocytes % 18.3 L, Monocytes % 9.5 H, Eosinophils % 2.1, Basophils % 0.8, Absolute Granulocytes 4.2, Absolute Lymphocytes 1.1 L, Absolute Monocytes 0.6, Absolute Eosinophils 0.1, Absolute Basophils 0 03/12/171949: Troponin I 0.17 *H Microbiology 03/12 1949 URINE ROUT: Urine Culture - RES Assessment/Plan Assessment: Mr Muñiz is a 72-year-old male with a PMH significant for HTN, AAA, prostate cancer with metastasis to bone, questionable diagnosis of hepatitis was brought into the emergency department complaining of right lower pain, emesis and possible syncope. Problem list Multiple syncopal episodes from malignant ventricular dysrhythmia related to an acute DC accompanied by low EF Hypertensive urgency on admission Portal venous thrombus-ruled out Right mid ureter obstructing calculus with hydronephrosis S/P right sided ureteroscopy with laser lithotripsy History of prostate cancer with bone metastases Plan Multiple syncopal episodes from malignant ventricular dysrhythmia related to an acute DC accompanied by low EF: * Continue to monitor patient on telemetry floor. No chest pain or lightheadedness. * Echocardiogram done yesterday showed an EF of 40-45% with [place] hypokinetic with Thinned/scarred septum. * Persistent diffuse T wave inversions in the anterior leads * Patient was reevaluated by cardiology today and recommended to hold off cardiac catheterization for now in the setting of persistent hematuria and history of advanced prostate cancer . Off heparin now. * Patient might need dual antiplatelet therapy, if coronary stent has to be placed after cardiac cath that would further exacerbate his hematuria. * Will repeat EKG with troponin , * Echocardiogram pending, * Will increase the dose of aspirin to 80 mg daily discontinue nitroglycerin * Cardiology follow-up appreciated. Acute blood loss anemia(in the setting of recent anticoagulation use and urological procedure/gross hematuria) * Hemoglobin dropped from yesterday. * We'll continue to monitor CBCs closely. * Keep hemoglobin above 8 area of cardiac history. * Watch for active signs of bleed. Hypertensive urgency on admission * Blood pressure on admission was elevated 204/111 that dropped significantly to 133/97. * Continue with antihypertensives Portal venous thrombus-ruled out * Abdominal ultrasound did yesterday rule out any underlying venous thrombosis. * Heparin has been discontinued * Continue with prophylaxis subcutaneous heparin Right mid ureter obstructing calculus with hydronephrosis S/P right sided ureteroscopy with laser lithotripsy * Patient continues to have persistent hematuria . * Dr. Eagle evaluated the patient as per recommendations renal ultrasound showed Resolved hydronephrosis of the right kidney since prior CAT scan March 08, 2017. No right renal stones seen. Right renal cyst. * Pending urine culture results * We'll continue with bladder irrigation. History of prostate cancer with bone metastases * We will try to obtain records from the [place] [facility] . History of a abdominal aortic aneurysm It appears the patient was aware that he had an aneurysm. Will compare imaging studies from previous hospitalizations. DVT PPX: Heparin Sub Q Code: FC Problem List: 1. Renal colic on right side 2. Myocardial infarction 3. Hydronephrosis with renal and ureteral calculus obstruction Pain Ratin Pain Location: Abdominal discomfort Pain Goal: Remain pain free Pain Plan: When necessary morphine Tomorrow's Labs & Rationales: Piter Levine MD 03/13/17 1118: Attending MD Review Statement Attending Statement Attending MD Statement: examined this patient, discuss w/resident/PA/HOOP RIVETING MACHINE OPERATOR, agreed w/resident/PA/HOOP RIVETING MACHINE OPERATOR, reviewed EMR data (avail), discussed with nursing, discussed with case mgmt, amended to note Attending Assessment/Plan: Patient seen and examined. Resting comfortably not in any acute distress. No issues overnight. No new complaints this morning. Continues to deny chest pain or shortness of breath. Denies palpitations. Denies nausea vomiting or abdominal pain. No new events on telemetry monitoring overnight. Troponin level is trending downwards. Patient wishes to proceed with conservative management as recommended by the cardiology service. Qiu catheter remains in place urine appears slightly less bloody today. Urology follow-up appreciated. Recommendations: -Continue patient on aspirin, statin, labetalol. Obtain EKG this morning. -Please ensure the patient's echocardiogram is repeated, in view of his non-ST elevation DC following his admission echocardiogram. -We will monitor for improvement of his hematuria following discontinuation of heparin infusion. -Hemoglobin level has trended downwards 2 points following heparin infusion. Will monitor closely. Transfuse to keep hemoglobin level greater than 8. -If hemoglobin level is stable tomorrow, and hematuria clears up we will consider discharge home. -Encourage nursing staff to ambulate patient.
--- NOTE | 2017-03-13 11:14 | PN- Cardiology ---
Subjective Subjective: Feeling well. No chest pain. No shortness of breath. No palpitations. No diaphoresis. He continues to have gross hematuria, with bright red blood in the Qiu catheter bag. Objective Vital Signs and I&Os Vital Signs Date Time Temp Pulse Resp B/P B/P Pulse O2 O2 Flow FiO2 Mean Ox Delivery Rate 03/13 815 69 128/78 03/13 0713 98.0 69 12 128/78 98 Room Air 03/13 0000 Room Air 03/12 2224 98.5 65 16 112/58 94 03/12 2144 79 102/58 03/12 1600 Room Air 03/12 1358 98.1 84 20 102/48 97 Room Air Intake & Output 03/13 1600 03/13 0800 03/13 0000 03/12 1600 03/12 0803/12 0000 Intake Total 240 480 650 150 220 Output Total 1064 144 5012 400 80 Balance -1110 -120 -350 -250 140 Intake, IV 150 150 40 Intake, Oral 240 480 400 0 150 Intake, Other 100 30 Output, Urine 6839 640 0205 400 80 Physical Exam: Gen: NAD HEENT: normal Lungs: clear to auscultation, normal resp. effort Heart: S1, S2, no murmurs Abdomen: Soft, nontender, no masses Extremities: No clubbing, cyanosis, or edema. Neuro: Alert and oriented x 3, cranial nerves intact Current Medications: Current Medications Sig/Fareed Start time Last Medication Dose Route Stop Time Status Admin Acetaminophen 1,000 MG Q6P PRN 03/08 0815 AC 03/11 N/A 1 UNIT IV 0407 Aspirin 325 MG DAILY 03/10 1030 AC 03/13 PO 0816 Atorvastatin Calcium 80 MG 1700 03/10 1700 AC 03/12 PO 1738 Docusate Sodium 100 MG DAILY 03/11 0400 AC 03/13 PO 0816 Finasteride 5 MG DAILY 03/09 1000 AC 03/13 PO 0816 Heparin Sodium 25,000 UNIT Q24H / 1545 DC 03/11 (Porcine) IV 1201 Sodium Chloride 500 ML Labetalol HCl 200 MG BID 03/08 1422 AC 03/13 PO 0816 Morphine Sulfate 20 MG Q4P PRN 03/11 1030 AC 03/13 PO 1030 Nitroglycerin 0.5 GM Q6 03/10 1200 AC 03/13 TOP 0536 Senna 187 MG AT BEDTIME 03/11 0400 AC 03/12 PO 2144 Results Last 48 Hrs of Labs/Mics: Laboratory Tests 03/13/17 0900: Anion Gap 13, Estimated GFR > 60, BUN/Creatinine Ratio 31.3 H 03/13/17 0700: CBC w Diff NO MAN DIFF REQ, RBC 3.89 L, MCV 89.9, MCH 30.3, MCHC 33.7, RDW 14.9 H, MPV 11.2 H, Gran % 69.3, Lymphocytes % 18.3 L, Monocytes % 9.5 H, Eosinophils % 2.1, Basophils % 0.8, Absolute Granulocytes 4.2, Absolute Lymphocytes 1.1 L, Absolute Monocytes 0.6, Absolute Eosinophils 0.1, Absolute Basophils 0 03/12/17 1950: Troponin I 0.17 *H 03/12/17 0820: APTT Cancelled 03/12/17 0718: Anion Gap 10, Estimated GFR > 60, BUN/Creatinine Ratio 26.7 H, Troponin I 0.23 *H, CBC w Diff NO MAN DIFF REQ, RBC 3.96 L, MCV 89.8, MCH 30.3, MCHC 33.7, RDW 15.0 H, MPV 10.3, Gran % 76.5 H, Lymphocytes % 11.8 L, Monocytes % 10.6 H, Eosinophils % 0.9, Basophils % 0.2, Absolute Granulocytes 5.9, Absolute Lymphocytes 0.9 L, Absolute Monocytes 0.8 H, Absolute Eosinophils 0.1, Absolute Basophils 0 03/12/17 0105: APTT 49 H 03/11/17 1750: APTT Cancelled 03/11/17 1726: APTT 48 H 03/11/17 1145: APTT > 120 *H Recent Imaging Studies: EKG tracing from 03/12/17 is independently reviewed, and reveals normal sinus rhythm at 84 with premature atrial contractions, incomplete right bundle branch block, and anterior T-wave inversion Assessment/Plan Assessment/Plan Assessment: 1. Periprocedure myocardial infarction, likely type II [place] in the setting of urology procedure. No chest pain or other cardiac symptoms reported. 2. Prostate cancer with bone metastases 3. Gross hematuria 4. Infrarenal AAA 5. Mildly reduced left ventricular ejection fraction with hypokinetic apex seen on echocardiogram Recommendations: * The patient remains asymptomatic from a cardiac standpoint. I recommend continued initial conservative medical management of CAD given continuing gross hematuria and metastatic prostate cancer * Off heparin * With decrease aspirin to 81 mg daily * Would discontinue nitroglycerin paste in the absence of chest pain * Echocardiogram result pending Continue telemetry? Yes
--- NOTE | 2017-03-13 12:57 | ECHOCARDIOGRAM REPORT ---
WASHINGTON HOLLOWAY Age: 72 : 1945 Gender: M Exam Date: 03/11/2017 10:18 Exam Location: [address] Ht (in): 64 Wt (lb): 142 BSA: 1.72 BP: 124 / 78 Ordering Physician: Chasity Orozco MD Referring Physician: Mag Morejon MD Technologist: Noa Petersen [facility] Room Number: [id number] Indications: CARDIOMYOPATHY Rhythm: Sinus Technical Quality: Good FINDINGS Left Ventricle Normal size left ventricle. Mildly abnormal left ventricular ejection fraction estimated at 40-45%. Hypokinetic anterior wall. Hypokinetic lateral wall. Hypokinetic septum. [place] hypokinetic. Right Ventricle Right ventricle not well visualized, grossly normal. Right Atrium Normal right atrial size. Left Atrium Left atrial size at the upper limits of normal. Mitral Valve Mitral valve thickened. Mitral annular calcification. Mild mitral regurgitation. Aortic Valve Trileaflet aortic valve. Diffuse thickening (sclerosis) of the aortic valve cusps without reduced excursion. No aortic stenosis. No aortic regurgitation. Tricuspid Valve Tricuspid valve not well visualized, grossly normal. Trace to mild tricuspid regurgitation. Right ventricular systolic pressure estimated at 28 mmHg. Pulmonic Valve Pulmonic valve not well visualized. Pericardium No pericardial effusion. Great Vessels Aortic root and proximal ascending aorta not well visualized, grossly normal. CONCLUSIONS 1. This was a limited followup study performed to reassess LV systolic function and wall motion. 2. Aortic sclerosis is present. 3. Mitral leaflet thickening is present with anular calcification and mild mitral insufficiency. 4. There is no pericardial fluid present. 5. The left ventricular chamber size is normal with segmental hypokinesia involving the mid to distal septum, anterolateral and anteroapical segments. The ejection fraction is approximately 45%. 6. Mild tricuspid insufficiency is presenet with no evidence of pulmonary hypertension. Mag Morejon M.D. (Electronically Signed) Final Date: 13 March 2017 12:56 MEASUREMENTS (Male / Female) Normal Values 2D ECHO LV Diastolic Diameter PLAX 4.5 cm 4.2 - 5.9 / 3.9 - 5.3 cm LV Systolic Diameter PLAX 2.9 cm 2.1 - 4.0 cm LV Fractional Shortening PLAX 35.6 % 25 - 46 % LV Ejection Fraction 2D Teich 65.2 % IVS Diastolic Thickness 1.3 cm LVPW Diastolic Thickness 1.3 cm LV Relative Wall Thickness 0.6 DOPPLER TR Peak Velocity 232.0 cm/s TR Peak Gradient 21.5 mmHg Right Atrial Pressure 5.0 mmHg Pulmonary Artery Systolic Pressu 26.5 mmHg Right Ventricular Systolic Press 26.5 mmHg
[2017-03-13 14:35] VITALS: BP 110/58
[2017-03-13 20:56] VITALS: BP 120/56
[2017-03-14 06:39] VITALS: BP 146/82
--- NOTE | 2017-03-14 07:21 | PN- Cardiology ---
Subjective Subjective: Patient was seen and examined today. Patient alert, awake, oriented. Feeling well. No chest pain. No shortness of breath. No palpitations. No diaphoresis. His hematuria started to clear up with no significant gross hematuria like yesterday. Objective Vital Signs and I&Os Vital Signs Date Time Temp Pulse Resp B/P B/P Pulse O2 O2 Flow FiO2 Mean Ox Delivery Rate 03/14 1002 98.1 82 20 146/82 03/14 0539 98.1 64 20 146/82 96 Room Air 03/13 2055 98.1 75 18 120/56 97 Room Air 03/13 2052 75 120/56 03/13 1435 98.1 70 18 110/58 96 Room Air Intake & Output 03/14 1600 03/14 0000 03/13 1600 03/13 0000 Intake Total 450 240 480 Output Total 1000 1152 946 3135 600 Balance -1000 -1150 -150 -1110 -120 Intake, Oral 450 240 480 Number 2 Bowel Movements Output, Urine 1000 0924 983 6207 600 Physical Exam: Gen: NAD HEENT: normal Lungs: clear to auscultation, normal resp. effort Heart: S1, S2, no murmurs Abdomen: Soft, nontender, no masses Extremities: No clubbing, cyanosis, or edema. Neuro: Alert and oriented x 3, cranial nerves intact Current Medications: Current Medications Sig/Fareed Start time Last Medication Dose Route Stop Time Status Admin Acetaminophen 1,000 MG Q6P PRN 03/08 0815 AC 03/11 N/A 1 UNIT IV 0407 Aspirin 81 MG DAILY 03/14 1000 AC 03/14 PO 1002 Aspirin 325 MG DAILY 03/10 1030 DC 03/13 PO 0816 Atorvastatin Calcium 80 MG 1700 03/10 1700 AC 03/13 PO 1624 Docusate Sodium 100 MG DAILY 03/11 0400 AC 03/14 PO 1002 Finasteride 5 MG DAILY 03/09 1000 AC 03/14 PO 1002 Labetalol HCl 200 MG BID 03/08 1422 AC 03/14 PO 1002 Morphine Sulfate 20 MG Q4P PRN 03/11 1030 AC 03/14 PO 1006 Nitroglycerin 0.5 GM Q6 03/10 1200 DC 03/13 TOP 1150 Senna 187 MG AT BEDTIME 03/11 0400 AC 03/13 PO 205 Results Last 48 Hrs of Labs/Mics: Laboratory Tests 03/14/17 0637: CBC w Diff NO MAN DIFF REQ, RBC 3.99 L, MCV 90.1, MCH 30.3, MCHC 33.6, RDW 14.7 H, MPV 10.9 H, Gran % 66.9, Lymphocytes % 19.3 L, Monocytes % 10.8 H, Eosinophils % 2.5, Basophils % 0.5, Absolute Granulocytes 4.2, Absolute Lymphocytes 1.2, Absolute Monocytes 0.7 H, Absolute Eosinophils 0.2, Absolute Basophils 0 03/13/17 0900: Anion Gap 13, Estimated GFR > 60, BUN/Creatinine Ratio 31.3 H, Troponin I 0.13 *H 03/13/17 0700: CBC w Diff NO MAN DIFF REQ, RBC 3.89 L, MCV 89.9, MCH 30.3, MCHC 33.7, RDW 14.9 H, MPV 11.2 H, Gran % 69.3, Lymphocytes % 18.3 L, Monocytes % 9.5 H, Eosinophils % 2.1, Basophils % 0.8, Absolute Granulocytes 4.2, Absolute Lymphocytes 1.1 L, Absolute Monocytes 0.6, Absolute Eosinophils 0.1, Absolute Basophils 0 03/12/17 1950: Troponin I 0.17 *H Assessment/Plan Assessment/Plan Assessment: 1. Periprocedure myocardial infarction that is type I [place] giving the EKG changes and the Echo finding of hypokinesia involving the mid to distal septum, anterolateral and anteroapical segments. 2. Prostate cancer with bone metastases 3. Gross hematuria 4. Infrarenal AAA 5. Mildly reduced left ventricular ejection fraction with hypokinetic apex seen on echocardiogram Recommendations: * The patient remains asymptomatic from a cardiac standpoint. I recommend continued initial conservative medical management of CAD given hematuria and metastatic prostate cancer * Off heparin * Continue aspirin to 81 mg daily * P.t can be discharges on his current cardiac in p.t Meds and [facility], or he can follow up with us if he like to. We will need to address starting him on MATT-I as outp.t as he will be DC today [facility] with [facility] or with the [facility] so we can follow him up closely. we can start it today but he will need to stay another 24 hr to assess his response giving his underlying medical conditions. Continue telemetry? Yes
--- NOTE | 2017-03-14 08:04 | PN- Housestaff ---
Chasity Orozco 03/14/17 0803: Subjective Follow-up For: 1.Multiple syncopal episodes from malignant ventricular dysrhythmia related to an acute NM accompanied by low EF. 2.Right mid ureter obstructing calculus with hydronephrosis S/P right sided ureteroscopy with laser lithotripsy. Tele-Events Since Last Visit: Normal sinus rhythm with some PVCs overnight no overnight events Subjective: Patient is seen and examined this morning lying comfortably in the bed, denies any nausea vomiting abdominal discomfort no shortness of breath or breathing palpitations vitals are stable Review of Systems Constitutional: Denies: chills, diaphoresis, fever. EENTM: Denies: blurred vision, double vision, visual changes. Cardiovascular: Denies: chest pain, edema, orthopena. Respiratory: Denies: cough, hemoptysis. Gastrointestinal: Denies: abdominal pain, bloating, constipation, diarrhea. Genitourinary: Denies: discharge. Musculoskeletal: Denies: back pain, gout, joint pain. Objective Last 24 Hrs of Vital Signs/I&O Vital Signs Date Time Temp Pulse Resp B/P B/P Pulse O2 O2 Flow FiO2 Mean Ox Delivery Rate 03/14 1002 98.1 82 20 146/82 03/14 0639 98.1 64 20 146/82 96 Room Air 03/13 2055 98.1 75 18 120/56 97 Room Air 03/13 2052 75 120/56 03/13 1435 98.1 70 18 110/58 96 Room Air Intake & Output 03/14 1600 03/14 0800 03/14 0000 Intake Total 500 Output Total 950 1000 1150 Balance -450 -1000 -1150 Intake, Oral 500 Output, Urine 950 1000 1150 Physical Exam General Appearance: Alert, Oriented X3 Skin: No Rashes, No Breakdown Skin Temp/Moisture Exam: Warm/Dry HEENT: Atraumatic, PERRLA Cardiovascular: Regular Rate, Normal S1 Lungs: Clear to Auscultation, Normal Air Movement Current Medications: Current Medications Sig/Fareed Start time Last Medication Dose Route Stop Time Status Admin Acetaminophen 1,000 MG Q6P PRN 03/08 0815 DCD 03/11 N/A 1 UNIT IV 0407 Aspirin 81 MG DAILY 03/14 1000 DCD 02 PO 1002 Atorvastatin Calcium 80 MG 1700 03/10 1700 DCD 02 PO 1624 Docusate Sodium 100 MG DAILY 03/11 0400 DCD 03/14 PO 1002 Finasteride 5 MG DAILY 03/09 1000 DCD 03/14 PO 1002 Labetalol HCl 200 MG BID 03/08 1422 DCD 03/14 PO 1002 Morphine Sulfate 20 MG Q4P PRN 03/11 1030 DCD 03/14 PO 1006 Senna 187 MG AT BEDTIME 03/11 0400 DCD 03/13 PO 2054 Last 24 Hrs of Lab/Dany Results Last 24 Hrs of Labs/Mics: Laboratory Tests 03/14/17 0637: CBC w Diff NO MAN DIFF REQ, RBC 3.99 L, MCV 90.1, MCH 30.3, MCHC 33.6, RDW 14.7 H, MPV 10.9 H, Gran % 66.9, Lymphocytes % 19.3 L, Monocytes % 10.8 H, Eosinophils % 2.5, Basophils % 0.5, Absolute Granulocytes 4.2, Absolute Lymphocytes 1.2, Absolute Monocytes 0.7 H, Absolute Eosinophils 0.2, Absolute Basophils 0 Assessment/Plan Assessment: Mr Muñiz is a 72-year-old male with a PMH significant for HTN, AAA, prostate cancer with metastasis to bone, questionable diagnosis of hepatitis was brought into the emergency department complaining of right lower pain, emesis and possible syncope. Problem list Multiple syncopal episodes from malignant ventricular dysrhythmia related to an acute NM accompanied by low EF Hypertensive urgency on admission Portal venous thrombus-ruled out Right mid ureter obstructing calculus with hydronephrosis S/P right sided ureteroscopy with laser lithotripsy History of prostate cancer with bone metastases Plan Multiple syncopal episodes from malignant ventricular dysrhythmia related to an acute NM accompanied by low EF: * Continue to monitor patient on telemetry floor. No chest pain or lightheadedness. * Echocardiogram done yesterday showed an EF of 40-45% with [place] hypokinetic with Thinned/scarred septum. * Persistent diffuse T wave inversions in the anterior leads * Patient was reevaluated by cardiology today and recommended to hold off cardiac catheterization for now in the setting of persistent hematuria and history of advanced prostate cancer . Off heparin now. * Patient might need dual antiplatelet therapy, if coronary stent has to be placed after cardiac cath that would further exacerbate his hematuria. * Repeated echocardiogram showed similar results(EF of 40%) if patient remains stable will discharge the patient home with a follow-up with cardiology as an outpatient, patient needs to be started on MATT inhibitor's as an outpatient after cardiology evaluation in the setting of systolic dysfunction. * Will increase the dose of aspirin to 80 mg daily ,discontinue nitroglycerin * Cardiology follow-up appreciated. Acute blood loss anemia(in the setting of recent anticoagulation use and urological procedure/gross hematuria) * Hemoglobin remained stable today, hematuria improved * Watch for active signs of bleed. Hypertensive urgency on admission * Blood pressure on admission was elevated 204/111 that dropped significantly to 133/97. * Continue with antihypertensives Portal venous thrombus-ruled out * Abdominal ultrasound did yesterday rule out any underlying venous thrombosis. * Heparin has been discontinued * Continue with prophylaxis subcutaneous heparin Right mid ureter obstructing calculus with hydronephrosis S/P right sided ureteroscopy with laser lithotripsy * Patient continues to have persistent hematuria . * Dr. Eagle evaluated the patient as per recommendations renal ultrasound showed Resolved hydronephrosis of the right kidney since prior CAT scan March 08, 2017. No right renal stones seen. Right renal cyst. * Pending urine culture results * We'll continue with bladder irrigation. History of prostate cancer with bone metastases * We will try to obtain records from the [facility] . History of a abdominal aortic aneurysm It appears the patient was aware that he had an aneurysm. Will compare imaging studies from previous hospitalizations. DVT PPX: Heparin Sub Q Code: FC Problem List: 1. Myocardial infarction 2. Renal colic on right side 3. Syncope Pain Ratin Pain Location: no pain at this time Pain Goal: Remain pain free Pain Plan: tylenol and morphine Tomorrow's Labs & Rationales: no labs needed Piter Apodaca MD 03/14/17 1314: Attending MD Review Statement Attending Statement Attending MD Statement: examined this patient, discuss w/resident/PA/[employer], agreed w/resident/PA/[employer] PREPARER, reviewed EMR data (avail), discussed with nursing, discussed with case mgmt, amended to note Attending Assessment/Plan: Patient seen and examined. Resting comfortably not in any acute distress. No issues overnight on monitor and storage bin tender. Troponin level is trending downwards. Patient remains asymptomatic. Hematuria has cleared up on Qiu catheter was discontinued today. He will be managed conservatively for his non-ST elevation myocardial infarction which required following his urologic procedure. He is noted to have systolic dysfunction however this was present prior to the cardiac events. He will follow-up in the outpatient setting for consideration of MATT inhibitor/ARB therapy. He is medically stable to be discharged today.
[2017-03-14] MEDS ORDERED: ASPIRIN EC81 M1 PO ×2 (08:05→10:33)
[2017-03-14 08:06] LABS: ABSOLUTE BASOPHIL COUNT 0 /CUMM (0.0-0.2); ABSOLUTE EOSINOPHIL COUNT 0.2 /CUMM (0.0-0.7); ABSOLUTE GRANULOCYTE CT 4.2 /CUMM (1.4-6.5); ABSOLUTE LYMPH COUNT 1.2 /CUMM (1.2-3.4); ABSOLUTE MONOCYTE COUNT 0.7 /CUMM (0.10-0.60); BASOPHIL % 0.5 % (0.0-2.0); EOSINOPHIL % 2.5 % (0-5); GRANULOCYTE % 66.9 % (42.2-75.2); HEMATOCRIT 35.9 % (42-52); MEAN CORPUSCULAR HGB 30.3 PG (27.0-31.0); MEAN CORPUSCULAR HGB CONC 33.6 G/DL (33.0-37.0); MEAN CORPUSCULAR VOLUME 90.1 FL (80.0-94.0); MEAN PLATELET VOLUME 10.9 FL (7.4-10.4); RBC DISTRIBUTION WIDTH 14.7 % (11.5-14.5); RED BLOOD CELL CT 3.99 /CUMM (4.70-6.10); WHITE BLOOD CELL COUNT 6.2 /CUMM (4.8-10.8)
[2017-03-14 08:25] LABS: PLATELET COUNT 103 /CUMM (130-400)
[2017-03-14 10:02] VITALS: BP 146/82
== END 2017-03-14 12:30 | disposition home health service (06) | DRG 668 ==
LOC: ERH 23:56 → 1NO 03-08 02:28 → ERHI 03-08 02:28 → ENRESERV 03-08 03:29 → 1NO 03-08 05:20 → ENTRNSPT 03-08 11:51 → EDTRNSPT 03-08 12:07 → EDTRNSPTSTS 03-08 12:07 → CMPTRNSPT 03-08 12:17 → 1NO 03-09 08:39 → ENTRNSPT 03-14 12:09 → EDTRNSPTSTS 03-14 12:24 → 1NO 03-14 12:30 → CMPTRNSPT 03-14 12:30
PROVIDERS: Dermatology; Emergency Medicine; Internal Medicine; Student in an Organized Health Care Education/Training Program
PROC: 0TC67ZZ Extirpation of Matter from Right Ureter, Via Natural or Artificial Opening (ICD-10-PCS; principal; 2017-03-08)
PROC: 0T767DZ Dilation of Right Ureter with Intraluminal Device, Via Natural or Artificial Opening (ICD-10-PCS; 2017-03-08)
DX: N13.2 Hydronephrosis with renal and ureteral calculous obstruction (principal); I21.9 Acute myocardial infarction, unspecified; C79.51 Secondary malignant neoplasm of bone; R64 Cachexia; D69.6 Thrombocytopenia, unspecified; D62 Acute posthemorrhagic anemia; I42.9 Cardiomyopathy, unspecified; J44.9 Chronic obstructive pulmonary disease, unspecified; Z68.24 Body mass index [BMI] 24.0-24.9, adult; C61 Malignant neoplasm of prostate; I10 Essential (primary) hypertension; I71.4 Abdominal aortic aneurysm, without rupture; F17.210 Nicotine dependence, cigarettes, uncomplicated; I16.0 Hypertensive urgency; Z86.73 Personal history of transient ischemic attack (TIA), and cerebral infarction without residual deficits; E87.6 Hypokalemia; D72.829 Elevated white blood cell count, unspecified; R01.1 Cardiac murmur, unspecified; G89.4 Chronic pain syndrome; R31.0 Gross hematuria; T45.515A Adverse effect of anticoagulants, initial encounter; Y92.239 Unspecified place in hospital as the place of occurrence of the external cause
CPT/HCPCS: 1NSP; 36415; 71046; 74018; 74177; 76775; 81001; 82355; 82436; 87086; 93005; 93010; 93306; 93308; 93321; C2617; J1642; J1644; J2405; J2550; J3490; J7042